=== PATIENT | female | born 1935 | race Caucasian/White ===

== ENCOUNTER → 2017-07-03 12:36 | Outpatient (CLI) | payer MEDICARE, BC, SELFPAY ==
--- NOTE | 2017-07-03 12:43 | NVE_ITS ---
Venous Exam Indications: 729.5 Pain in limb. IMPRESSIONS 1. There is no evidence of significant Reflux. 2. No evidence of deep or superficial vein thrombosis involving the left lower extremity Left lower extremity venous duplex evaluation. Doppler flow study including spectral analysis, color and link scale imaging. Location: Vascular laboratory. Patient status: Outpatient. CRITICAL FINDINGS - Reported to: ALEYDA - Read back and verified. - 07/03/17 - 1305 - NONE Tables: Venous flow and imaging: + +-------+ + Location Overall Flow properties + +-------+ + Left common femoral Patent Normal phasicity; spontaneous; normal augmentation; compressible + +-------+ + Left saphenofemoral junction Patent Compressible + +-------+ + Left profunda femoral Patent Compressible + +-------+ + Left femoral Patent Normal phasicity; spontaneous; normal augmentation; compressible + +-------+ + Left greater saphenous Patent Normal phasicity; spontaneous; normal augmentation; compressible + +-------+ + Left popliteal Patent Normal phasicity; spontaneous; normal augmentation; compressible + +-------+ + Left posterior tibial Patent Compressible + +-------+ + Left peroneal Patent Compressible + +-------+ + Left gastrocnemius Patent Compressible + +-------+ + Left soleal Patent Compressible + +-------+ + (Report amended ) Electronically signed by: Beau Murdock [id number]
== END ==
PROVIDERS: PCP Family Medicine; Visit Provider Family Medicine
DX: M79.605 Pain in left leg (principal); M79.89 Other specified soft tissue disorders
CPT/HCPCS: 93971

== ENCOUNTER → 2018-01-24 11:15 | Outpatient (CLI) | payer MEDICARE, BC, SELFPAY ==
--- NOTE | 2018-01-24 11:21 | XR_ITS ---
XR chest 2V HISTORY: ITS.REASON: RML PNEUMONIA ORDERING PHYSICIAN: Haylie Houser PATIENT AGE: 82 years COMPARISON: None FINDINGS: There is cardiomegaly with mild pulmonary venous congestion. There are no old exams available for comparison. Adwoa are prominent. There is a large hiatal hernia with an air-fluid level in the hernia there is mild kyphosis of the lower thoracic spine. IMPRESSION: Large hiatal hernia with cardiomegaly and mild CHF
== END ==
PROVIDERS: PCP Nurse Practitioner Family; Visit Provider Nurse Practitioner Family
DX: J18.1 Lobar pneumonia, unspecified organism (principal)
CPT/HCPCS: 71046

== ENCOUNTER → 2018-03-05 11:26 | Outpatient (CLI) | payer MEDICARE, BC, SELFPAY ==
--- NOTE | 2018-03-05 11:31 | XR_ITS ---
XR chest 2V HISTORY: Chest pain, pneumonia ITS.REASON: PLEURISY,PNEUMONIA RT LOWER LOBE ORDERING PHYSICIAN: Haylie Houser PATIENT AGE: 82 years COMPARISON: 01/24/2018 FINDINGS: Cardiomegaly without failure. Mitral valve calcification. There is a moderate sized hiatal hernia. There is kyphosis of the thoracic spine. Patchy density is present in the right lung base not readily apparent on the previous study in system with an area of atelectasis or infiltrate. IMPRESSION: Somewhat limited exam with severe kyphosis with patchy infiltrate or atelectasis in the right lung base. No change cardiomegaly with moderate-sized hiatal hernia.
== END ==
PROVIDERS: PCP Nurse Practitioner Family; Visit Provider Nurse Practitioner Family
DX: R09.1 Pleurisy (principal); J18.1 Lobar pneumonia, unspecified organism
CPT/HCPCS: 71046

== ENCOUNTER → 2018-03-08 13:41 | Outpatient (CLI) | payer MEDICARE, BC, SELFPAY ==
--- NOTE | 2018-03-08 13:44 | MM_ITS ---
MM Dig mamm BI DX w/CAD INDICATION: Right breast pain ORDERING PHYSICIAN: Haylie Houser PATIENT AGE: 82 years COMPARISON: 08/24/2015, 08/14/2011, 06/14/2010 TECHNIQUE: Standard images performed along with spot compression views FINDINGS: Mostly fatty replaced fibroglandular tissue. Bilateral benign-appearing calcifications. No malignant appearing mass or malignant appearing microcalcifications. There is some mild motion artifact on the right MLO reduced with spot compression view IMPRESSION: No evidence of malignancy with no significant change BI-RADS Category: 2 Benign Finding(s) RECOMMENDED FOLLOW-UP: 1YR - 1 YEAR FOLLOW-UP (A letter has been sent to the patient regarding results of the study.)
== END ==
PROVIDERS: PCP Nurse Practitioner Family; Visit Provider Nurse Practitioner Family
DX: R92.8 Other abnormal and inconclusive findings on diagnostic imaging of breast (principal); N64.4 Mastodynia
CPT/HCPCS: 77066

== ENCOUNTER → 2018-07-20 16:22 | Outpatient (CLI) | payer MEDICARE, BC, SELFPAY ==
[2018-07-20 17:33] LABS: Anion Gap 10.1 mEq/L (5-15); Blood Urea Nitrogen 14 mg/dL (7-18); Calcium 8.7 mg/dL (8.5-10.1); Carbon Dioxide 35 mmol/L (21.0-32.0); Chloride 94 mmol/L (98-107); Creatinine,Serum 1.07 mg/dL (0.55-1.02); Estimated Glomerular Filt Rate 49 ml/min (>60); GFR (African American) 60 ML/MIN (>60); Glucose 98 mg/dL (74-106); INR 3.77 (0.9-1.1); Potassium 3.1 mmoL/L (3.5-5.1); Prothrombin Time 37.4 seconds (9.4-11.8); Sodium 136 mmol/L (136-145)
== END ==
PROVIDERS: PCP Family Medicine; Referring Provider Nurse Practitioner Family; Visit Provider Family Medicine
DX: R71.8 Other abnormality of red blood cells (principal); Z51.81 Encounter for therapeutic drug level monitoring
CPT/HCPCS: 80048; 85610

== ENCOUNTER → 2018-10-30 12:46 | Outpatient (CLI) | payer MEDICARE, BC, SELFPAY ==
[2018-10-30 14:17] LABS: Anion Gap 9.6 mEq/L (5-15); Blood Urea Nitrogen 27 mg/dL (7-18); Calcium 9.2 mg/dL (8.5-10.1); Carbon Dioxide 33 mmol/L (21.0-32.0); Chloride 103 mmol/L (98-107); Creatinine,Serum 1.64 mg/dL (0.55-1.02); Estimated Glomerular Filt Rate 30 ml/min (>60); GFR (African American) 36 ML/MIN (>60); Glucose 113 mg/dL (74-106); Potassium 4.6 mmoL/L (3.5-5.1); Sodium 141 mmol/L (136-145)
== END ==
PROVIDERS: Visit Provider Internal Medicine Cardiovascular Disease
DX: I10 Essential (primary) hypertension (principal)
CPT/HCPCS: 36415; 80048; 83735

== ENCOUNTER → 2018-11-08 09:43 | Outpatient (CLI) | payer MEDICARE, BC, SELFPAY ==
[2018-11-08 11:01] LABS: Anion Gap 11.1 mEq/L (5-15); Blood Urea Nitrogen 36 mg/dL (7-18); Calcium 9.6 mg/dL (8.5-10.1); Carbon Dioxide 38 mmol/L (21.0-32.0); Chloride 93 mmol/L (98-107); Creatinine,Serum 1.67 mg/dL (0.55-1.02); Estimated Glomerular Filt Rate 29 ml/min (>60); GFR (African American) 36 ML/MIN (>60); Glucose 84 mg/dL (74-106); Magnesium 2.2 mg/dL (1.4-2.2); Potassium 3.1 mmoL/L (3.5-5.1); Sodium 139 mmol/L (136-145)
[2018-11-08 11:35] LABS: INR 1.61 (0.9-1.1); Prothrombin Time 16.4 seconds (9.4-11.8)
== END ==
PROVIDERS: Visit Provider Nurse Practitioner Family
DX: Z51.81 Encounter for therapeutic drug level monitoring (principal); Z79.01 Long term (current) use of anticoagulants
CPT/HCPCS: 36415; 80048; 83735; 85610

== ENCOUNTER → 2018-11-15 10:22 | Outpatient (CLI) | payer MEDICARE, BC, SELFPAY ==
[2018-11-15 10:59] LABS: INR 2.88 (0.9-1.1); Prothrombin Time 28.5 seconds (9.4-11.8)
[2018-11-15 13:19] LABS: Anion Gap 7.4 mEq/L (5-15); Blood Urea Nitrogen 31 mg/dL (7-18); Calcium 9.8 mg/dL (8.5-10.1); Carbon Dioxide 39 mmol/L (21.0-32.0); Chloride 95 mmol/L (98-107); Creatinine,Serum 1.77 mg/dL (0.55-1.02); Estimated Glomerular Filt Rate 27 ml/min (>60); GFR (African American) 33 ML/MIN (>60); Glucose 85 mg/dL (74-106); Potassium 3.4 mmoL/L (3.5-5.1); Sodium 138 mmol/L (136-145)
== END ==
PROVIDERS: Visit Provider Family Medicine
DX: Z51.81 Encounter for therapeutic drug level monitoring (principal); Z79.01 Long term (current) use of anticoagulants; E87.6 Hypokalemia
CPT/HCPCS: 36415; 80048; 85610

== ENCOUNTER 2018-11-17 23:46 | Observation (INO) ==
[2018-11-18 00:52] LABS: Microscopic, Urine URINE MICROSCOPIC (MICROSCOPIC)
[2018-11-18 00:56] LABS: Appearance,Urine CLOUDY (Clear); Bilirubin,Urine Negative (Negative); Blood, Urine 1+ (Negative); Color,Urine YELLOW (Yellow); Glucose,Urine (UA) Negative (Negative); Ketones,Urine Negative (Negative); Leukocyte Esterase,Urine 1+ (Negative); Protein,Urine TRACE (Negative); Urobilinogen,Urine 0.2 EU/dl (0.2)
[2018-11-18 01:01] LABS: Bacteria,Urine 2+ /lpf
[2018-11-18 01:23] LABS: Basophils # 0.1 K/mm3 (0-0.2); Basophils % 0.7 % (0.1-2.0); Eosinophils # 0.4 K/mm3 (0.0-0.4); Eosinophils % 4.5 % (0.1-12.0); Hematocrit 39.1 % (37.0-47.0); Hemoglobin 12.1 g/dL (12.2-16.2); Lymphocytes % 11.1 % (10-50); Mean Corpuscular HGB Conc 30.9 g/dL (31.8-35.4); Mean Corpuscular Volume 99.8 fl (81-99); Mean Platelet Volume 7.2 fl (7.4-10.4); Monocytes # 0.8 K/mm3 (0.1-1.0); Neutrophils # 6.6 K/mm3 (1.8-7.8); Neutrophils % 74.7 % (37.0-80.0); Platelet Count 210 K/mm3 (142-424); Red Blood Count 3.92 M/mm3 (4.20-5.40); Red Cell Distribution Width 16.1 % (11.5-17.5); White Blood Count 8.8 K/mm3 (4.8-10.8)
[2018-11-18 01:33] LABS: INR 3.14 (0.9-1.1); Prothrombin Time 30.9 seconds (9.4-11.8)
[2018-11-18 01:40] LABS: Albumin Level 3.4 gm/dL (3.4-5.0); Anion Gap 10.8 mEq/L (5-15); Bilirubin,Total 1.2 mg/dL (0.2-1.0); Calcium 9.4 mg/dL (8.5-10.1); Globulin 3.3 gm/dl (1.3-3.2); Total Protein,Serum 6.7 gm/dL (6.4-8.2)
--- NOTE | 2018-11-18 02:26 | Emergency Department Note ---
ED Disposition Clinical Impression: Renal insufficiency, Anticoagulated on Coumadin Cholelithiasis Qualifiers: Cholelithiasis location: gallbladder Cholecystitis presence: without cholecystitis Biliary obstruction: without biliary obstruction Qualified Code(s): K80.20 - Calculus of gallbladder without cholecystitis without obstruction Disposition: Admitted as Observation Condition on Discharge: Good Instructions: DI for Acute Abdomen Referrals: Ronnie Pizarro MD [Primary Care Provider] - - Critical Care Critical Care Time: No Attestation: On 11/17/18, the high probability of a clinically significant, sudden or life threatening deterioration of the following system(s) required my full and direct attention, intervention and personal management. The time I documented below is in addition to time spent performing reported procedures but includes the following listed in this critical care notation. Medical Decision Making - Medical Records Medical records reviewed: Yes: I reviewed the patient's medical records. - Willam Inquiry Pt receiving controlled substance: No Vital Signs: 11/18/18 00:39 11/18/18 00:51 11/18/18 02:12 Temperature 98.1 F 98.1 F Temperature Source Oral Oral Pulse Rate [Right Radial] 58 L 50 L 44 L Respiratory Rate 18 18 18 Blood Pressure [Right Arm] 131/62 131/62 144/59 H Blood Pressure Mean [Right Arm] 85 85 87 Blood Pressure Source [Right Arm] Automatic Cuff Automatic Cuff Blood Pressure Position [Right Arm] Supine Sitting 02 Sat by Pulse Oximetry 94 L 96 Oxygen Delivery Method Room Air Room Air - Lab Data Lab results reviewed: Yes: I reviewed the patient's lab results. Lab Results 11/18/18 00:45: Urine Color Yellow, Urine Appearance Cloudy, Urine pH 7.0, Ur Specific [place] 1.010, Urine Protein Trace, Urine Glucose (UA) Negative, Urine Ketones Negative, Urine Blood 1+, Urine Nitrate Positive, Urine Bilirubin Negative, Urine Urobilinogen 0.2, Ur Leukocyte Esterase 1+ A, Urine RBC 10-20, Urine WBC 10-20, Ur Squamous Epith Cells 3-5, Urine Bacteria 2+ 11/18/18 01:06: WBC 8.8, RBC 3.92 L, Hgb 12.1 L, Hct 39.1, MCV 99.8 H, MCH 30.8, MCHC 30.9 L, RDW 16.1, Plt Count 210, MPV 7.2 L, Neut % (Auto) 74.7, Lymph % (Auto) 11.1, [facility] % (Auto) 9.0, Eos % (Auto) 4.5, Baso % (Auto) 0.7, Neut # (Auto) 6.6, Lymph # (Auto) 1.0, [facility] # (Auto) 0.8, Eos # (Auto) 0.4, Baso # (Auto) 0.1 11/18/18 01:06: Sodium 134 L, Potassium 4.8 D, Chloride 95 L, Carbon Dioxide 33 H, Anion Gap 10.8, BUN 37 H, Creatinine 2.04 H, Estimated Creat Clear 30, Estimated GFR 23 L, Est GFR ( Amer) 28 L, Glucose 96, Calcium 9.4, Total Bilirubin 1.2 H, AST 54 H, ALT 35, Alkaline Phosphatase 114, Troponin I 0.08 H, C-Reactive Protein 1.0 H, Total Protein 6.7, Albumin 3.4, Globulin 3.3 H, Albumin/Globulin Ratio 1.0 L, Amylase 31, Lipase 116 11/18/18 01:06: ESR 13 11/18/18 01:06: Lactate 1.5 11/18/18 01:06: PT 30.9 H, INR 3.14 H Result diagrams: 11/18/18 01:06 11/18/18 01:06 Orders (Tests/Meds): ED MEDICATIONS Generic Name Dose Route Start Last Admin Trade Name Freq PRN Reason Stop Dose Admin Sodium Chloride 1,000 mls @ 999 mls/hr 11/18/18 01:00 11/18/18 01:20 Sod Chlor 0.9% 1000ml Bag IV 11/18/18 02:00 999 mls/hr .Q1H1M LORET[place] Administration Discontinued Medications Generic Name Dose Route Start Last Admin Trade Name Freq PRN Reason Stop Dose Admin Ketorolac Tromethamine 30 mg 11/18/18 00:46 11/18/18 01:20 Toradol 30mg/Ml Vial IV 11/18/18 00:47 30 mg ONCE ONE Administration Morphine Sulfate 4 mg 11/18/18 02:39 11/18/18 02:44 Morphine 4mg/Ml Syringe IV 11/18/18 02:40 4 mg ONCE ONE Administration Ondansetron HCl 4 mg 11/18/18 00:46 11/18/18 01:20 Zofran 4mg/2ml Vial IV 11/18/18 00:47 4 mg ONCE ONE Administration Ondansetron HCl 4 mg 11/18/18 02:39 11/18/18 02:44 Zofran 4mg/2ml Vial IV 11/18/18 02:40 4 mg ONCE ONE Administration ORDERS Category Date Time Status CT abdomen pelvis wo con Stat Cat Scan 11/18/18 00:46 Taken XR chest portable Stat Exams 11/18/18 00:45 Taken Blood Culture Stat Micro 11/18/18 01:06 Received Urine Culture Stat Micro 11/18/18 00:45 Received - Radiology Data #1 Image(s): Chest Image Reviewed: Yes I reviewed the patient's radiology image Preliminary Findings: Abnormal (nonspecific) - CT Data CT Scan: Abdomen, Pelvis Time Received: 04:[address] Reviewed: Yes: I have viewed the radiologist's interpretation Preliminary Findings: Abnormal (possible gb dis) - ECG Data Tracing #1 Arrhythmias present: accelerated junctional rhythm Ischemic changes: non-specific ST-T wave changes Nausea/Vomiting/Diarrhea HPI - General Chief complaint: Abdominal Pain Stated complaint: nausea,stomach aches Time Seen by Provider: 11/18/18 00:50 Mode of Arrival: Wheelchair Source of Information: Patient, Relative, Medical Record Limitations: No Limitations Description of Symptoms (Recalled from ER Triage Doc. by RN): pt states that she seen dr meeks earlier this week for nausea/vomiting/diarrhea. pt states that he told her it was from eating buffet. pt states that the nausea has worsened despite home zofran prescribed and she is now having abdominal pain, swelling and tightness. - History of Present Illness HPI Narrative: progressive abd pain this week with vomiting - dec po intake - she had been seen by dr pizarro this week - nonspecific diarrhea - MD complaint: nausea, vomiting, abdominal pain Onset (ago): day(s) Associated Abdominal Pain: Yes Location of pain: RUQ Severity: moderate Consistency: intermittent Associated symptoms: denies other symptoms - Related Data Home Medications Medication Instructions Recorded Confirmed Aspirin [Aspir 81] 81 mg PO DAILY 06/17/18 11/18/18 Fluoxetine HCl 20 mg PO DAILY 06/17/18 11/18/18 Levothyroxine Sodium 100 mcg PO DAILY 06/17/18 11/18/18 [Levothyroxine 100mcg (0.1MG) Tab] Rosuvastatin Calcium 10 mg PO HS 06/17/18 11/18/18 Torsemide 20 mg PO BID 06/17/18 11/18/18 Amiodarone HCl [Amiodarone 100mg 200 mg PO DAILY 08/22/18 11/18/18 Tab] Ferrous Sulfate [Iron] 325 mg PO BID 08/22/18 11/18/18 Nebivolol HCl [Bystolic] 2.5 mg PO DAILYP PRN 08/22/18 11/18/18 Potassium Chloride [Klor-Con] 60 meq PO TID 08/22/18 11/18/18 Warfarin Sodium 3.5 mg PO DAILY 08/22/18 11/18/18 Acetaminophen [Tylenol 325mg 650 mg PO Q6HP PRN 11/18/18 11/18/18 Tablet] Tramadol HCl/Acetaminophen 1 tab PO DAILY 11/18/18 11/18/18 [Ultracet 37.5/325mg tablet] metOLazone [metOLazone 2.5mg 2.5 mg PO DIRECTED 11/18/18 11/18/18 Tablet] Allergies Allergy/AdvReac Type Severity Reaction Status Date / Time No Known Allergies Allergy Verified 11/18/18 00:45 [facility] History - Hepatitis A Screen Drug use history?: No High risk sexual behaviors?: No History of sexually transmitted infection?: No Currently employed?: No Childcare worker?: No Do you have indoor plumbing?: Yes Do you have electricity?: Yes Attestation statement:: This patient has been screened for Hepatitis A risk factors. I have reviewed the patient's past medical history: Yes Medical History: Denies:: Cancer, Diabetes Mellitus Type 1, Diabetes Mellitus Type 2, MRSA Amputation: No - Social History Smoking Status: Never smoker Alcohol Intake: never Occupational Status: retired, disabled Housing: [facility] ROS Obtained: Yes All systems reviewed & no additional complaints - Constitutional Constitutional: Denies fever(s) - Eyes Eyes: Denies change in vision - ENT Ears, Nose, Mouth, and Throat: Denies sore throat - Cardiovascular Cardiovascular: Denies chest pain - Respiratory Respiratory: No cough - Gastrointestinal Gastrointestingal: Reports: as per HPI, abdominal pain, nausea, vomiting - Genitourinary Female Genitourinary: Denies hematuria - Musculoskeletal Musculoskeletal: Denies joint pain, Denies joint swelling - Integumentary/Breasts Skin/Breast: Denies rash - Neurologic Neurologic: Denies seizure-like activity Physical Exam - General General appearance: alert, obese - Head Head exam: normocephalic - Eye Eye exam: Present: PERRL, EOMI. Absent: scleral icterus - ENT ENT exam: Present: mucous membranes dry - Neck Neck exam: Present: trachea midline - Respiratory Respiratory exam: Present: other (dec bs bilat ). Absent: respiratory distress - Cardiovascular Cardiovascular exam: Present: regular rate, systolic murmur - Abdominal Exam Abdominal exam: Present: soft, tenderness, Alcantara's sign Abdominal tenderness: Present: RUQ, moderate - Extremities Exam Extremities exam: Present: pedal edema - Neurological Exam Neurological exam: Present: alert, CN II-XII intact - Psychiatric Psychiatric exam: Present: normal affect - Skin Skin exam: Absent: rash
--- NOTE | 2018-11-18 07:36 | History & Physical Report ---
*Admission Date: 11/18/18 *Chief complaint: Abdominal pain *History of present illness: 83-year-old female presented to the ER with 1 week of intermittent episodes of abdominal pain. Pain began last Sunday after eating at a local restaurant. She had nausea, mild abdominal pain and loose stools. She was seen in my office on Sunday with persistent symptoms. She was felt to possibly have mild gastroenteritis and was advised to follow a liquid diet. Patient tells me the rest of the week she continued to have loose stools until late in the week at which point she went a few days without a bowel movement until she took some MiraLAX. She continues to have abdominal pain and nausea. She presented to the emergency department overnight and work-up revealed acute gallstone on CT scan. Patient has been admitted for serial abdominal examinations and gallbladder ultrasound this morning [facility] History I have reviewed the patient's past medical history: Yes Medical History: Reports:: Congestive Heart Failure, Hyperlipidemia, Hypertension, Valvular Heart Disease Denies:: Cancer, Diabetes Mellitus Type 1, Diabetes Mellitus Type 2, MRSA *Have you ever received a pneumonia vaccine?: Yes *Have you received a flu vaccine this season?: Yes Other Medical History: Reports: Thyroid Disease Other Surgeries: Yes: Cardiac Surgery, Tubal Ligation Amputation: No Fractures: No - *Social History Educational Level: Attended College Smoking Status: Never smoker Alcohol Intake: never *Occupational Status:: retired, disabled Housing: house Household Members: spouse *Travel in the last 8 weeks: None - Psychiatric History Expresses thoughts of harming self/others: None Suicide Plan Description: No Plan Family Hx:: Cancer, Heart Attack Review of Systems - Review of Systems Review of systems:: pertinent systems reviewed and negative unless documented below - Constitutional Reports anorexia - *Cardiovascular Denies chest pain, Denies chest pain at rest - *Gastrointestinal Reports abdominal pain, Reports bloating, Reports change in bowel habits - *Musculoskeletal Reports abnormal walking, Reports joint pain, Reports decreased muscle mass - *Neurologic Denies seizure-like activity Meds Home Medications Medication Instructions Recorded Confirmed Type Aspirin [Aspir 81] 81 mg PO DAILY 06/17/18 11/18/18 History Fluoxetine HCl 20 mg PO DAILY 06/17/18 11/18/18 History Levothyroxine Sodium 100 mcg PO DAILY 06/17/18 11/18/18 History [Levothyroxine 100mcg (0.1MG) Tab] Rosuvastatin Calcium 10 mg PO HS 06/17/18 11/18/18 History Torsemide 20 mg PO BID 06/17/18 11/18/18 History Amiodarone HCl [Amiodarone 100mg 200 mg PO DAILY 08/22/18 11/18/18 History Tab] Ferrous Sulfate [Iron] 325 mg PO BID 08/22/18 11/18/18 History Nebivolol HCl [Bystolic] 2.5 mg PO DAILYP PRN 08/22/18 11/18/18 History Potassium Chloride [Klor-Con] 60 meq PO TID 08/22/18 11/18/18 History Warfarin Sodium 3.5 mg PO DAILY 08/22/18 11/18/18 History Acetaminophen [Tylenol 325mg 650 mg PO Q6HP PRN 11/18/18 11/18/18 History Tablet] Tramadol HCl/Acetaminophen 1 tab PO DAILY 11/18/18 11/18/18 History [Ultracet 37.5/325mg tablet] metOLazone [metOLazone 2.5mg 2.5 mg PO DIRECTED 11/18/18 11/18/18 History Tablet] Allergies Allergy/AdvReac Type Severity Reaction Status Date / Time No Known Allergies Allergy Verified 11/18/18 00:45 Exam Vital signs and Labs for Last 24 Hours: Temp Pulse Resp BP Pulse Ox 98.1 F 50 L 18 140/63 95 11/18/18 04:57 11/18/18 05:22 11/18/18 04:57 11/18/18 04:57 11/18/18 04:51 Laboratory Results - last 24 hr 11/18/18 00:45: Urine Color Yellow, Urine Appearance Cloudy, Urine pH 7.0, Ur Specific [place] 1.010, Urine Protein Trace, Urine Glucose (UA) Negative, Urine Ketones Negative, Urine Blood 1+, Urine Nitrate Positive, Urine Bilirubin Negative, Urine Urobilinogen 0.2, Ur Leukocyte Esterase 1+ A, Urine RBC 10-20, Urine WBC 10-20, Ur Squamous Epith Cells 3-5, Urine Bacteria 2+ 11/18/18 01:06: WBC 8.8, RBC 3.92 L, Hgb 12.1 L, Hct 39.1, MCV 99.8 H, MCH 30.8, MCHC 30.9 L, RDW 16.1, Plt Count 210, MPV 7.2 L, Neut % (Auto) 74.7, Lymph % (Auto) 11.1, [place] % (Auto) 9.0, Eos % (Auto) 4.5, Baso % (Auto) 0.7, Neut # (Auto) 6.6, Lymph # (Auto) 1.0, [place] # (Auto) 0.8, Eos # (Auto) 0.4, Baso # (Auto) 0.1 11/18/18 01:06: Sodium 134 L, Potassium 4.8 D, Chloride 95 L, Carbon Dioxide 33 H, Anion Gap 10.8, BUN 37 H, Creatinine 2.04 H, Estimated Creat Clear 30, Estimated GFR 23 L, Est GFR ( Amer) 28 L, Glucose 96, Calcium 9.4, Total Bilirubin 1.2 H, AST 54 H, ALT 35, Alkaline Phosphatase 114, Troponin I 0.08 H, C-Reactive Protein 1.0 H, Total Protein 6.7, Albumin 3.4, Globulin 3.3 H, Albumin/Globulin Ratio 1.0 L, Amylase 31, Lipase 116 11/18/18 01:06: ESR 13 11/18/18 01:06: Lactate 1.5 11/18/18 01:06: PT 30.9 H, INR 3.14 H I & O for Last 24 hours: Intake & Output 11/15/18 11/16/18 11/17/18 11/18/18 11:59 11:59 11:59 11:59 Intake Total Balance Weight 205 lb 3 oz - Constitutional no acute distress - *Routine HEENT Exam Eye: Present: EOMI ENT: Present: mucous membranes moist - *Routine Neck Exam Present: supple, full ROM, JVD - *Routine Respiratory Exam Present: CTA bilaterally - *Routine Cardiovascular Exam Present: RRR, murmur - *Routine Abdominal Exam Present: soft, normoactive bowel sounds. Absent: tenderness, distended, rebound Assessment and Plan (1) Abdominal pain Current visit: Yes Status: Acute Category: Medical Code(s): R10.9 - Unsp ecified abdominal pain (2) Cholelithiasis Current visit: Yes Status: Acute Qualifiers: Cholelithiasis location: gallbladder Cholecystitis presence: without cholecystitis Biliary obstruction: without biliary obstruction Qualified C ode(s): K80.20 - Calculus of gallbladder without cholecystitis without obstruction Category: Medical Code(s): K80.20 - Calculus of gallbladder without cholecystitis without obstruction - Assessment and plan all Dx Assessment and Plan for all problems:: 1. Gallbladder ultrasound this morning to look for evidence of acute cholecystitis 2. Start IV Protonix twice daily 3. Home medications 4. After her ultrasound she will be started on clear liquids
--- NOTE | 2018-11-18 10:29 | Pharmacy Consult Notes ---
[facility] Pharmacy VTE Monitoring - Patient Demographics Admission date: 11/18/18 Report Date: 11/18/18 Time: 10:29 Allergies/Adverse Reactions: Patient Allergies No Known Allergies Allergy (Verified 11/18/18 00:45) Height: 1.68 m Weight: 93.071 kg Patient Problems: Current Active Problems (This Medical Record has been edited. Action required.) Renal insufficiency (Acute) Anticoagulated on Coumadin (Acute) Cholelithiasis (Acute) Abdominal pain (Acute) - VTE Risk Labs: VTE Related Lab Results Hgb 12.1 g/dL (12.2-16.2) L 11/18/18 01:06 Hct 39.1 % (37.0-47.0) 11/18/18 01:06 Plt Count 210 K/mm3 (142-424) 11/18/18 01:06 PT 30.9 seconds (9.4-11.8) H 11/18/18 01:06 INR 3.14 (0.9-1.1) H 11/18/18 01:06 BUN 37 mg/dL (7-18) H 11/18/18 01:06 Creatinine 2.04 mg/dL (0.55-1.02) H 11/18/18 01:06 Estimated Creat Clear 30 mL/min (50-200) 11/18/18 01:06 Was VTE Risk Assessment Performed: Yes VTE Score: 5 VTE Risk Level: Low Risk - Prophylaxis VTE Prophylaxis Ordered?: Yes Types of VTE Prophylaxis: Pharmacological Pharmacologic Type: Warfarin - VTE Diagnosis Confirmed Treatment or plan recommended: Continue Current Treatment
--- NOTE | 2018-11-18 17:36 | Electrocardiograph Report ---
APPROVED REPORT Exam: Resting ECG HR:45 bpm ECG Measurements Heart Rate 45 AXES QRSd 94 QRS 88 QT 556 T34 QTc 480 <Conclusion> Junctional rhythm Nonspecific ST-T wave changes, questionable electrolyte abnormality Abnormal ECG Electronically signed by : Ronnie Torres, 11/18/2018 17:36:25
[2018-11-19 06:48] LABS: Anion Gap 10.6 mEq/L (5-15); Calcium 8.8 mg/dL (8.5-10.1)
[2018-11-19 07:16] LABS: Basophils # 0.1 K/mm3 (0-0.2); Eosinophils # 0.7 K/mm3 (0.0-0.4); Eosinophils % 10.7 % (0.1-12.0); Hematocrit 35.9 % (37.0-47.0); Lymphocytes # 0.7 K/mm3 (0.7-4.5); Lymphocytes % 10.6 % (10-50); Mean Corpuscular HGB Conc 30.7 g/dL (31.8-35.4); Mean Corpuscular Volume 99.8 fl (81-99); Mean Platelet Volume 7.1 fl (7.4-10.4); Monocytes # 0.6 K/mm3 (0.1-1.0); Monocytes % 8.9 % (1.7-9.3); Neutrophils # 4.4 K/mm3 (1.8-7.8); Neutrophils % 68.8 % (37.0-80.0); Platelet Count 167 K/mm3 (142-424); Red Blood Count 3.59 M/mm3 (4.20-5.40); Red Cell Distribution Width 15.9 % (11.5-17.5); White Blood Count 6.4 K/mm3 (4.8-10.8)
--- NOTE | 2018-11-19 07:20 | Progress Note ---
Internal Medicine - PN: Subj *Date: 11/19/18 *Time: 07:18 Interval history: Patient has no complaints this morning. She has not had any abdominal pain since yesterday morning. Her bowels have not moved. She clear liquids. Exam Vital signs and Labs for Last 24 Hours: Temp Pulse Resp BP Pulse Ox 98.0 F 60 22 130/72 91 L 11/19/18 04:00 11/19/18 04:00 11/19/18 04:00 11/19/18 04:00 11/19/18 04:00 Laboratory Results - last 24 hr 11/19/18 05:53: Sodium 138, Potassium 2.6 L* D, Chloride 97 L, Carbon Dioxide 33 H, Anion Gap 10.6, BUN 32 H, Creatinine 1.79 H, Estimated Creat Clear 36, Estimated GFR 27 L, Est GFR ( Amer) 33 L, Glucose 80, Calcium 8.8 I & O for Last 24 hours: Intake & Output 11/16/18 11/17/18 11/18/18 11/19/18 11:59 11:59 11:59 11:59 Intake Total 42 / 42 480 / 480 Balance 42 / 42 480 / 480 Weight 205 lb 3 oz 205 lb 2.947 oz Microbiology Reports for the Last 24 Hours: Microbiology 11/18/18 00:45 Urine,Clean Catch Urine Culture - Preliminary NO GROWTH AFTER 24 HOURS Narrative: She is in no distress. Lungs are clear. Heart has a regular rate and rhythm with systolic murmur. Abdomen is soft and nontender. Bowel sounds are present Assessment and Plan (1) Abdominal pain Current visit: Yes Status: Acute Category: Medical Code(s): R10.9 - Unspecified abdominal pain (2) Cholelithiasis Current visit: Yes Status: Acute Qualifiers: Cholelithiasis location: gallbladder Cholecystitis presence: without cholecystitis Biliary obstruction: without biliary obstruction Qualified Code(s): K80.20 - Calculus of gallbladder without cholecystitis without obstruction Category: Medical Code(s): K80.20 - Calculus of gallbladder without cholecystitis without obstruction - Assessment and plan all Dx Assessment and Plan for all problems:: 1. Advance diet to full liquids and likely low residue diet later in the day 2. Replace potassium orally 3. Gallbladder ultrasound showed mild thickening of the gallbladder wall but no evidence of acute cholecystitis, pericholecystic fluid, stones
[2018-11-19 07:56] LABS: INR 3.02 (0.9-1.1); Prothrombin Time 29.8 seconds (9.4-11.8)
--- NOTE | 2018-11-20 07:18 | Progress Note ---
Internal Medicine - PN: Subj *Date: 11/20/18 *Time: 07:16 Interval history: Patient reported some back pain yesterday evening treated with tramadol and then some abdominal pain described as crampy in nature. Patient feels the urge to have a bowel movement but has been unable. Exam Vital signs and Labs for Last 24 Hours: Temp Pulse Resp BP Pulse Ox 97.7 F 68 18 120/51 L 97 11/20/18 04:00 11/20/18 04:00 11/20/18 04:00 11/20/18 04:00 11/20/18 04:00 Laboratory Results - last 24 hr 11/19/18 05:53: WBC 6.4 D, RBC 3.59 L, Hgb 11.0 L, Hct 35.9 L, MCV 99.8 H, MCH 30.6, MCHC 30.7 L, RDW 15.9, Plt Count 167, MPV 7.1 L, Neut % (Auto) 68.8, Lymph % (Auto) 10.6, [place] % (Auto) 8.9, Eos % (Auto) 10.7, Baso % (Auto) 1.0, Neut # (Auto) 4.4, Lymph # (Auto) 0.7, [place] # (Auto) 0.6, Eos # (Auto) 0.7 H, Baso # (Auto) 0.1 11/19/18 05:53: PT 29.8 H, INR 3.02 H I & O for Last 24 hours: Intake & Output 11/17/18 11/18/18 11/19/18 11/20/18 11:59 11:59 11:59 11:59 Intake Total 960 / 960 970 / 970 Balance 960 / 960 970 / 970 Weight 205 lb 3 oz 205 lb 2.947 oz 205 lb 7.533 oz Microbiology Reports for the Last 24 Hours: Microbiology 11/18/18 01:06 Blood Blood Culture - Preliminary NO GROWTH AFTER 48 HOURS 11/18/18 01:06 Blood Blood Culture - Preliminary NO GROWTH AFTER 48 HOURS 11/18/18 00:45 Urine,Clean Catch Urine Culture - Preliminary Narrative: Patient is awake and alert. Lungs are clear. Heart is regular rate and rhythm. Abdomen is soft and distended with active bowel sounds Assessment and Plan (1) Abdominal pain Current visit: Yes Status: Acute Category: Medical Code(s): R10.9 - Unspecified abdominal pain (2) Cholelithiasis Current visit: Yes Status: Ruled-out Qualifiers: Cholelithiasis location: gallbladder Cholecystitis presence: without cholecystitis Biliary obstruction: without biliary obstruction Qualified Code(s): K80.20 - Calculus of gallbladder without cholecystitis without obstruction Category: Medical Code(s): K80.20 - Calculus of gallbladder without cholecystitis without obstruction (3) Constipation Current visit: Yes Status: Acute Category: Medical Code(s): K59.00 - Constipation, unspecified (4) UTI (urinary tract infection) Current visit: Yes Status: Suspected Category: Medical Code(s): N39.0 - Urinary tract infection, site not specified - Assessment and plan all Dx Assessment and Plan for all problems:: 1. We will give MiraLAX this morning and Dulcolax suppository as needed 2. May discharge later today 3. Await urine culture
--- NOTE | 2018-11-20 07:23 | Discharge Summary ---
General - General Admission date:: 11/18/18 HPI HPI: 83-year-old female presented to the ER with 1 week of intermittent episodes of abdominal pain. Pain began last Sunday after eating at a local restaurant. She had nausea, mild abdominal pain and loose stools. She was seen in my office on Sunday with persistent symptoms. She was felt to possibly have mild gastroenteritis and was advised to follow a liquid diet. Patient tells me the rest of the week she continued to have loose stools until late in the week at which point she went a few days without a bowel movement until she took some MiraLAX. She continues to have abdominal pain and nausea. She presented to the emergency department overnight and work-up revealed acute gallstone on CT scan. Patient has been admitted for serial abdominal examinations and gallbladder ultrasound this morning Hospital Course Hospital Course: Patient was admitted and started on low volume IV fluids. 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 Patient was started on a clear liquid diet which she tolerated. After 24 hours she was advanced to full liquids and then a bland/low residue diet which she tolerated. Patient did not have a bowel movement while hospitalized and began to complain of some abdominal discomfort towards the end of admission. Patient was given MiraLAX and as needed Dulcolax suppositories to try to relieve constipation. Urinalysis was abnormal on admission and patient was started on Rocephin IV. At the time of this dictation urine culture is not final. Patient will be continued on antibiotics until culture is available. On the patient was tolerating diet. She was discharged home. She will follow-up in the office in 2 days Objective Vital signs: Temp Pulse Resp BP Pulse Ox 97.7 F 68 18 120/51 L 97 11/20/18 04:00 11/20/18 04:00 11/20/18 04:00 11/20/18 04:00 11/20/18 04:00 Results Labs on day of discharge: Labs from last 24 hours 11/19/18 11/19/18 05:53 05:53 WBC 6.4 D RBC 3.59 L Hgb 11.0 L Hct 35.9 L MCV 99.8 H MCH 30.6 MCHC 30.7 L RDW 15.9 Plt Count 167 MPV 7.1 L Neut % (Auto) 68.8 Lymph % (Auto) 10.6 [place] % (Auto) 8.9 Eos % (Auto) 10.7 Baso % (Auto) 1.0 Neut # (Auto) 4.4 Lymph # (Auto) 0.7 [place] # (Auto) 0.6 Eos # (Auto) 0.7 H Baso # (Auto) 0.1 PT 29.8 H INR 3.02 H Preliminary micro results at discharge 11/18/18 01:06 Blood Culture - Preliminary Blood NO GROWTH AFTER 48 HOURS 11/18/18 01:06 Blood Culture - Preliminary Blood NO GROWTH AFTER 48 HOURS 11/18/18 00:45 Urine Culture - Preliminary Urine,Clean Catch DS: Diagnosis - Discharge Diagnosis (1) Abdominal pain Status: Acute (2) Cholelithiasis Status: Ruled-out (3) Constipation Status: Acute (4) UTI (urinary tract infection) Status: Suspected (5) Constipation by delayed colonic transit Status: Acute Discharge Plan - Patient Discharge Instructions ACTIVITY: Continue current activity DIET: continue same diet Patient Instructions: Gallstones, DI for Gallstones, Coumadin Vitamin K/ Diet, Coumadin Therapy Booklet - Follow up Plan Follow up with: Ronnie Powers MD [Primary Care Provider] - 2 days Disposition: Home, Self-Snf Medications: Home Medications Medication Instructions Recorded Confirmed Type Aspirin [Aspir 81] 81 mg PO DAILY 06/17/18 11/18/18 History Fluoxetine HCl 20 mg PO DAILY 06/17/18 11/18/18 History Levothyroxine Sodium 100 mcg PO DAILY 06/17/18 11/18/18 History [Levothyroxine 100mcg (0.1MG) Tab] Rosuvastatin Calcium 10 mg PO HS 06/17/18 11/18/18 History Torsemide 20 mg PO BID 06/17/18 11/18/18 History Amiodarone HCl [Amiodarone 100mg 200 mg PO DAILY 08/22/18 11/18/18 History Tab] Nebivolol HCl [Bystolic] 2.5 mg PO DAILYP PRN 08/22/18 11/18/18 History Potassium Chloride [Klor-Con] 60 meq PO TID 08/22/18 11/18/18 History Warfarin Sodium 3.5 mg PO DAILY 08/22/18 11/18/18 History Acetaminophen [Tylenol 325mg 650 mg PO Q6HP PRN 11/18/18 11/18/18 History Tablet] Ferrous Gluconate [Ferrous 324 mg PO DAILY 11/18/18 11/18/18 History Gluconate 324mg Tab] Ondansetron HCl [Ondansetron 4mg 4 mg PO Q8HP PRN 11/18/18 11/18/18 History Tablet] Tramadol HCl/Acetaminophen 1 tab PO Q6HP PRN 11/18/18 11/18/18 History [Ultracet 37.5/325mg tablet] metOLazone [metOLazone 2.5mg 2.5 mg PO QODHS 11/18/18 11/18/18 History Tablet] Polyethylene Glycol 3350 [Miralax 17 gm PO DAILY #30 powd.pack 11/20/18 Rx 17gm Packet] cephALEXin [Cephalexin 500mg Tab] 1,000 mg PO Q12H #20 tab 11/20/18 Rx Prescriptions/Medication Reconciliation: New cephALEXin [Cephalexin 500mg Tab] 1,000 mg PO Q12H #20 tab Polyethylene Glycol 3350 [Miralax 17gm Packet] 17 gm PO DAILY #30 powd.pack Continued Fluoxetine HCl 20 mg PO DAILY Rosuvastatin Calcium 10 mg PO HS Torsemide 20 mg PO BID Levothyroxine Sodium [Levothyroxine 100mcg (0.1MG) Tab] 100 mcg PO DAILY Aspirin [Aspir 81] 81 mg PO DAILY Warfarin Sodium 3.5 mg PO DAILY Amiodarone HCl [Amiodarone 100mg Tab] 200 mg PO DAILY Potassium Chloride [Klor-Con] 60 meq PO TID Tramadol HCl/Acetaminophen [Ultracet 37.5/325mg tablet] 1 tab PO Q6HP PRN PRN Reason: PAIN metOLazone [metOLazone 2.5mg Tablet] 2.5 mg PO QODHS Acetaminophen [Tylenol 325mg Tablet] 650 mg PO Q6HP PRN PRN Reason: As Needed For Fever Or Pain Ferrous Gluconate [Ferrous Gluconate 324mg Tab] 324 mg PO DAILY Ondansetron HCl [Ondansetron 4mg Tablet] 4 mg PO Q8HP PRN PRN Reason: Nausea And Vomiting Nebivolol HCl [Bystolic] 2.5 mg PO DAILYP PRN PRN Reason: see orders - Problem Reconciliation Problems Reviewed?: Yes
[2018-11-20 07:34] LABS: Calcium 8.7 mg/dL (8.5-10.1)
[2018-11-20 07:36] LABS: INR 3.83 (0.9-1.1); Prothrombin Time 37.4 seconds (9.4-11.8)
[2018-11-20 08:56] LABS: Basophils # 0.1 K/mm3 (0-0.2); Basophils % 0.6 % (0.1-2.0); Eosinophils # 0.7 K/mm3 (0.0-0.4); Eosinophils % 8.2 % (0.1-12.0); Hematocrit 38.1 % (37.0-47.0); Hemoglobin 11.7 g/dL (12.2-16.2); Lymphocytes # 0.7 K/mm3 (0.7-4.5); Lymphocytes % 8.3 % (10-50); Mean Corpuscular HGB Conc 30.6 g/dL (31.8-35.4); Mean Corpuscular Volume 100.7 fl (81-99); Monocytes # 0.9 K/mm3 (0.1-1.0); Monocytes % 10.2 % (1.7-9.3); Neutrophils # 6.1 K/mm3 (1.8-7.8); Neutrophils % 72.6 % (37.0-80.0); Platelet Count 186 K/mm3 (142-424); Red Blood Count 3.78 M/mm3 (4.20-5.40); Red Cell Distribution Width 15.9 % (11.5-17.5); White Blood Count 8.3 K/mm3 (4.8-10.8)
== END 2018-11-20 14:03 | disposition home or self-care (01) ==
LOC: ER 23:46 → 2ND 23:46
PROVIDERS: ADMIT Family Medicine; ATTEND Family Medicine
CPT/HCPCS: 36415; 71010; 71045; 74176; 76705; 80048; 80053; 81001; 82150; 83605; 83690; 84484; 85025; 85610; 85651; 86140; 87040; 87086; 87088; 87186; 93005; 94761; 96365; 96375; 96376; 99284; G0378; J2405

== ENCOUNTER → 2018-12-10 16:26 | Outpatient (CLI) | payer MEDICARE, BC, SELFPAY ==
[2018-12-10 16:53] LABS: INR 2.22 (0.9-1.1); Prothrombin Time 22.2 seconds (9.4-11.8)
[2018-12-10 18:37] LABS: Anion Gap 10.8 mEq/L (5-15); Blood Urea Nitrogen 31 mg/dL (7-18); Calcium 9.6 mg/dL (8.5-10.1); Carbon Dioxide 35 mmol/L (21.0-32.0); Chloride 94 mmol/L (98-107); Creatinine,Serum 1.76 mg/dL (0.55-1.02); Estimated Glomerular Filt Rate 28 ml/min (>60); GFR (African American) 33 ML/MIN (>60); Glucose 75 mg/dL (74-106); Potassium 4.8 mmoL/L (3.5-5.1); Sodium 135 mmol/L (136-145)
== END ==
PROVIDERS: Visit Provider Family Medicine
DX: Z51.81 Encounter for therapeutic drug level monitoring (principal); Z79.01 Long term (current) use of anticoagulants; E87.6 Hypokalemia
CPT/HCPCS: 36415; 80048; 85610

== ENCOUNTER → 2018-12-18 10:42 | Outpatient (CLI) | payer MEDICARE, BC, SELFPAY ==
[2018-12-18 14:23] LABS: Potassium 2.7 mmoL/L (3.5-5.1)
[2018-12-18 15:28] LABS: INR 1.69 (0.9-1.1); Prothrombin Time 17.1 seconds (9.4-11.8)
== END ==
PROVIDERS: PCP Family Medicine; Visit Provider Family Medicine
DX: R04.0 Epistaxis (principal); Z51.81 Encounter for therapeutic drug level monitoring; Z79.01 Long term (current) use of anticoagulants
CPT/HCPCS: 84132; 85610

== ENCOUNTER → 2018-12-19 13:23 | Outpatient (CLI) | payer MEDICARE, BC, SELFPAY ==
[2018-12-19 14:31] LABS: Basophils # 0.1 K/mm3 (0-0.2); Basophils % 0.9 % (0.1-2.0); Eosinophils # 0.6 K/mm3 (0.0-0.4); Hematocrit 37.9 % (37.0-47.0); Hemoglobin 11.9 g/dL (12.2-16.2); Lymphocytes # 0.6 K/mm3 (0.7-4.5); Lymphocytes % 7.7 % (10-50); Mean Corpuscular HGB Conc 31.3 g/dL (31.8-35.4); Mean Corpuscular Hemoglobin 30.9 pg (27.0-31.2); Mean Corpuscular Volume 98.4 fl (81-99); Mean Platelet Volume 7.7 fl (7.4-10.4); Monocytes # 0.6 K/mm3 (0.1-1.0); Neutrophils # 5.9 K/mm3 (1.8-7.8); Neutrophils % 75.4 % (37.0-80.0); Platelet Count 205 K/mm3 (142-424); Red Blood Count 3.85 M/mm3 (4.20-5.40); Red Cell Distribution Width 15.5 % (11.5-17.5); Reticulocyte % (Auto) 1.9 % (0.9-3.2); White Blood Count 7.8 K/mm3 (4.8-10.8)
== END ==
PROVIDERS: Visit Provider Otolaryngology
DX: R04.0 Epistaxis (principal); R09.02 Hypoxemia
CPT/HCPCS: 36415; 85025; 85044

== ENCOUNTER → 2018-12-24 10:02 | Outpatient (CLI) | payer MEDICARE, BC, SELFPAY ==
[2018-12-24 13:59] LABS: Potassium 3.4 mmoL/L (3.5-5.1)
[2018-12-24 14:19] LABS: INR 2.53 (0.9-1.1); Prothrombin Time 25.2 seconds (9.4-11.8)
== END ==
PROVIDERS: PCP Family Medicine; Visit Provider Family Medicine
DX: Z51.81 Encounter for therapeutic drug level monitoring (principal); Z79.01 Long term (current) use of anticoagulants
CPT/HCPCS: 84132; 85610

== ENCOUNTER → 2018-12-28 15:00 | Outpatient (CLI) | payer MEDICARE, BC, SELFPAY ==
[2018-12-30 13:24] LABS: Adenovirus F 40/41, stool Not Detected (NotDetected); Astrovirus Not Detected (NotDetected); Campylobacter Not Detected (NotDetected); Clostridium Difficile A/B, PCR Not Detected (NotDetected); Cryptosporidium Not Detected (NotDetected); Cyclospora Cayetanesis Not Detected (NotDetected); Entamoeba histolytica Not Detected (NotDetected); Enteroaggregative E coli Not Detected (NotDetected); Enteropathogenic E coli Not Detected (NotDetected); Enterotoxigenic E coli Not Detected (NotDetected); Giardia lamblia Not Detected (NotDetected); Norovirus Not Detected (NotDetected); Plesimonas Shigalloides, PCR Not Detected (NotDetected); Rotavirus A Not Detected (NotDetected); Salmonella, PCR Not Detected (NotDetected); Sapovirus Not Detected (NotDetected); Shiga-like toxin E coli Not Detected (NotDetected); Shigella Enterovasive E coli Not Detected (NotDetected); Vibrio Cholerae Not Detected (NotDetected); Vibrio, PCR Not Detected (NotDetected); Yersinia Entercolitica, PCR Not Detected (NotDetected)
== END ==
PROVIDERS: Visit Provider Family Medicine
DX: R19.7 Diarrhea, unspecified (principal)
CPT/HCPCS: 87506

== ENCOUNTER → 2019-01-01 10:31 | Outpatient (CLI) | payer MEDICARE, BC, SELFPAY ==
[2019-01-01 14:06] LABS: Potassium 3.9 mmoL/L (3.5-5.1)
[2019-01-01 14:50] LABS: INR 2.89 (0.9-1.1); Prothrombin Time 28.6 seconds (9.4-11.8)
== END ==
PROVIDERS: PCP Family Medicine; Visit Provider Family Medicine
DX: R79.1 Abnormal coagulation profile (principal)
CPT/HCPCS: 84132; 85610

== ENCOUNTER → 2019-01-08 10:10 | Outpatient (CLI) | payer MEDICARE, BC, SELFPAY ==
[2019-01-08 14:13] LABS: Potassium 3.3 mmoL/L (3.5-5.1)
[2019-01-08 14:29] LABS: INR 2.63 (0.9-1.1); Prothrombin Time 26.1 seconds (9.4-11.8)
== END ==
PROVIDERS: PCP Family Medicine; Visit Provider Family Medicine
DX: Z51.81 Encounter for therapeutic drug level monitoring (principal); Z79.01 Long term (current) use of anticoagulants
CPT/HCPCS: 84132; 85610

== ENCOUNTER → 2019-01-15 10:35 | Outpatient (CLI) | payer MEDICARE, BC, SELFPAY ==
[2019-01-15 14:46] LABS: Potassium 3.9 mmoL/L (3.5-5.1)
[2019-01-15 15:07] LABS: INR 3.52 (0.9-1.1); Prothrombin Time 34.5 seconds (9.4-11.8)
== END ==
PROVIDERS: PCP Family Medicine; Visit Provider Family Medicine
DX: R79.1 Abnormal coagulation profile (principal)
CPT/HCPCS: 84132; 85610

== ENCOUNTER → 2019-01-22 11:04 | Outpatient (CLI) | payer MEDICARE, BC, SELFPAY ==
[2019-01-22 14:31] LABS: Potassium 3.2 mmoL/L (3.5-5.1)
[2019-01-22 15:35] LABS: INR 2.66 (0.9-1.1); Prothrombin Time 26.4 seconds (9.4-11.8)
== END ==
PROVIDERS: PCP Family Medicine; Visit Provider Family Medicine
DX: R79.1 Abnormal coagulation profile (principal); Z51.81 Encounter for therapeutic drug level monitoring; Z79.01 Long term (current) use of anticoagulants
CPT/HCPCS: 84132; 85610

== ENCOUNTER → 2019-01-29 10:01 | Outpatient (CLI) | payer MEDICARE, BC, SELFPAY ==
[2019-01-29 13:57] LABS: Potassium 3.5 mmoL/L (3.5-5.1)
[2019-01-29 14:32] LABS: INR 3.62 (0.9-1.1); Prothrombin Time 35.4 seconds (9.4-11.8)
== END ==
PROVIDERS: PCP Family Medicine; Visit Provider Family Medicine
DX: Z79.01 Long term (current) use of anticoagulants (principal); R79.1 Abnormal coagulation profile
CPT/HCPCS: 84132; 85610

== ENCOUNTER → 2019-02-05 09:52 | Outpatient (CLI) | payer MEDICARE, BC, SELFPAY ==
[2019-02-05 13:44] LABS: Potassium 3.7 mmoL/L (3.5-5.1)
[2019-02-05 14:37] LABS: INR 3.15 (0.9-1.1)
== END ==
PROVIDERS: PCP Family Medicine; Visit Provider Family Medicine
DX: Z79.01 Long term (current) use of anticoagulants (principal); R71.8 Other abnormality of red blood cells
CPT/HCPCS: 84132; 85610

== ENCOUNTER → 2019-02-12 11:47 | Outpatient (CLI) | payer MEDICARE, BC, SELFPAY ==
[2019-02-12 14:46] LABS: Potassium 3.9 mmoL/L (3.5-5.1)
[2019-02-12 14:49] LABS: INR 2.47 (0.9-1.1); Prothrombin Time 24.6 seconds (9.4-11.8)
== END ==
PROVIDERS: PCP Family Medicine; Visit Provider Family Medicine
DX: R79.1 Abnormal coagulation profile (principal); Z51.81 Encounter for therapeutic drug level monitoring; Z79.01 Long term (current) use of anticoagulants
CPT/HCPCS: 84132; 85610

== ENCOUNTER → 2019-02-20 10:11 | Outpatient (CLI) | payer MEDICARE, BC, SELFPAY ==
[2019-02-20 14:06] LABS: Potassium 3.2 mmoL/L (3.5-5.1)
[2019-02-20 14:50] LABS: INR 1.88 (0.9-1.1)
== END ==
PROVIDERS: PCP Family Medicine; Visit Provider Family Medicine
DX: E87.6 Hypokalemia (principal); Z79.01 Long term (current) use of anticoagulants; R79.1 Abnormal coagulation profile
CPT/HCPCS: 84132; 85610

== ENCOUNTER → 2019-02-28 15:41 | Outpatient (CLI) | payer MEDICARE, BC, SELFPAY ==
[2019-02-28 16:55] LABS: Potassium 4.3 mmoL/L (3.5-5.1)
== END ==
PROVIDERS: Visit Provider Family Medicine
DX: N18.3 Chronic kidney disease, stage 3 (moderate) (principal); E87.6 Hypokalemia
CPT/HCPCS: 36415; 84132

== ENCOUNTER → 2019-03-05 12:52 | Outpatient (CLI) | payer MEDICARE, BC, SELFPAY ==
[2019-03-05 15:59] LABS: Potassium 3.2 mmoL/L (3.5-5.1)
== END ==
PROVIDERS: PCP Family Medicine; Visit Provider Family Medicine
DX: Z51.81 Encounter for therapeutic drug level monitoring (principal); Z79.01 Long term (current) use of anticoagulants; I48.91 Unspecified atrial fibrillation; N18.3 Chronic kidney disease, stage 3 (moderate)
CPT/HCPCS: 36415; 84132

== ENCOUNTER → 2019-03-20 12:57 | Outpatient (CLI) | payer MEDICARE, BC, SELFPAY ==
[2019-03-20 14:24] LABS: INR 1.42 (0.9-1.1); Prothrombin Time 14.5 seconds (9.4-11.8)
[2019-03-20 14:37] LABS: Potassium 3.8 mmoL/L (3.5-5.1)
== END ==
PROVIDERS: PCP Family Medicine; Visit Provider Family Medicine
DX: Z51.81 Encounter for therapeutic drug level monitoring (principal); Z79.01 Long term (current) use of anticoagulants; R79.1 Abnormal coagulation profile
CPT/HCPCS: 36415; 84132; 85610

== ENCOUNTER 2019-03-20 22:51 | Observation (INO) ==
[2019-03-20 23:11] LABS: ABG Base Excess 12.4 mmol/L (-2.4-2.3); ABG HCO3 35.4 mmhg (22.0-26.0); ABG Oxygen Saturation 97 % (90-100); ABG PCO2 44.8 mmhg (35.0-45.0); ABG PH 7.52 mmol/L (7.35-7.45); ABG PO2 93.5 mmhg (80-100); ABG TCO2 36.7 mmhg (23-27)
[2019-03-20 23:13] LABS: Allen's Test Acceptable; Oxygen 4.5 lpm 38% nc %
[2019-03-20 23:15] LABS: Basophils # 0.1 K/mm3 (0-0.2); Eosinophils # 0.4 K/mm3 (0.0-0.4); Eosinophils % 4.2 % (0.1-12.0); Hematocrit 38.5 % (37.0-47.0); Hemoglobin 11.8 g/dL (12.2-16.2); Lymphocytes # 0.8 K/mm3 (0.7-4.5); Lymphocytes % 9.1 % (10-50); Mean Corpuscular HGB Conc 30.6 g/dL (31.8-35.4); Mean Corpuscular Volume 99.5 fl (81-99); Mean Platelet Volume 8.1 fl (7.4-10.4); Monocytes # 0.8 K/mm3 (0.1-1.0); Monocytes % 8.2 % (1.7-9.3); Neutrophils # 7.1 K/mm3 (1.8-7.8); Neutrophils % 77.6 % (37.0-80.0); Platelet Count 207 K/mm3 (142-424); Red Blood Count 3.87 M/mm3 (4.20-5.40); Red Cell Distribution Width 14.9 % (11.5-17.5); White Blood Count 9.2 K/mm3 (4.8-10.8)
[2019-03-20 23:26] LABS: Alanine Aminotransferase 17 U/L (12-78); Albumin Level 3.5 gm/dL (3.4-5.0); Alkaline Phosphatase 202 U/L (46-116); Amylase 37 U/L (25-115); Anion Gap 12.5 mEq/L (5-15); Aspartate Amino Transferase 40 U/L (15-37); Bilirubin,Direct 0.8 mg/dL (0.0-0.2); Bilirubin,Indirect 0.5 mg/dL (0.0-0.9); Bilirubin,Total 1.3 mg/dL (0.2-1.0); Blood Urea Nitrogen 28 mg/dL (7-18); Calcium 9.5 mg/dL (8.5-10.1); Chloride 92 mmol/L (98-107); Glucose 144 mg/dL (74-106); Sodium 141 mmol/L (136-145); Total Protein,Serum 7.3 gm/dL (6.4-8.2)
[2019-03-20 23:36] LABS: C-Reactive Protein < 0.2 mg/dL (0.0-0.9); Carbon Dioxide 40 mmol/L (21.0-32.0)
[2019-03-21 00:15] LABS: Erythrocyte Sedimentation Rate 25 mm/hr (0-30)
--- NOTE | 2019-03-21 00:42 | Emergency Department Note ---
ED Disposition Clinical Impression: Renal insufficiency, Hiatal hernia Chest pain Qualifiers: Chest pain type: precordial pain Qualified Code(s): R07.2 - Precordial pain Congestive heart failure (CHF) Qualifiers: Heart failure type: unspecified Heart failure chronicity: acute on chronic Qualified Code(s): I50.9 - Heart failure, unspecified Disposition: Admitted as Observation Condition on Discharge: Good Referrals: Ronnie Powers MD [Primary Care Provider] - - Critical Care Critical Care Time: No Attestation: On 03/20/19, the high probability of a clinically significant, sudden or life threatening deterioration of the following system(s) required my full and direct attention, intervention and personal management. The time I documented below is in addition to time spent performing reported procedures but includes the following listed in this critical care notation. Medical Decision Making - Medical Records Medical records reviewed: Yes: I reviewed the patient's medical records. - Willam Inquiry Pt receiving controlled substance: No Vital Signs: 03/20/19 22:53 03/20/19 23:03 03/20/19 23:19 Temperature 97.8 F Temperature Source Oral Pulse Rate 54 L Pulse Rate [Right] 58 L 57 L Respiratory Rate 22 20 Blood Pressure [Right Arm] 134/70 135/83 Blood Pressure Mean [Right Arm] 91 100 Blood Pressure Source [Right Arm] Automatic Cuff Automatic Cuff Blood Pressure Position [Right Arm] Supine Supine 02 Sat by Pulse Oximetry 80 L 92 L 97 Oxygen Delivery Method Nasal Cannula Nasal Cannula Nasal Cannula Oxygen Flow Rate (LPM) 3 5 4 03/21/19 00:26 Temperature Temperature Source Pulse Rate Pulse Rate [Right] 59 L Respiratory Rate 18 Blood Pressure [Right Arm] 136/69 Blood Pressure Mean [Right Arm] 91 Blood Pressure Source [Right Arm] Automatic Cuff Blood Pressure Position [Right Arm] Supine 02 Sat by Pulse Oximetry 96 Oxygen Delivery Method Nasal Cannula Oxygen Flow Rate (LPM) 4 - Lab Data Lab results reviewed: Yes: I reviewed the patient's lab results. Lab Results 03/20/19 23:00: WBC 9.2, RBC 3.87 L, Hgb 11.8 L, Hct 38.5, MCV 99.5 H, MCH 30.5, MCHC 30.6 L, RDW 14.9, Plt Count 207, MPV 8.1, Neut % (Auto) 77.6, Lymph % (Auto) 9.1 L, [place] % (Auto) 8.2, Eos % (Auto) 4.2, Baso % (Auto) 1.0, Neut # (Auto) 7.1, Lymph # (Auto) 0.8, [place] # (Auto) 0.8, Eos # (Auto) 0.4, Baso # (Auto) 0.1, ESR 25 03/20/19 23:00: Sodium 141, Potassium 3.5, Chloride 92 L, Carbon Dioxide 40 H, Anion Gap 12.5, BUN 28 H, Creatinine 1.78 H, Estimated Creat Clear 33, Estimated GFR 27 L, Est GFR ( Amer) 33 L, Glucose 144 H, Calcium 9.5, Total Bilirubin 1.3 H, Direct Bilirubin 0.8 H, Indirect Bilirubin 0.5, AST 40 H, ALT 17, Alkaline Phosphatase 202 H, Troponin I 0.04, C-Reactive Protein < 0.2, Total Protein 7.3, Albumin 3.5, Amylase 37, Lipase 141 03/20/19 23:00: Lactate 2.0 03/20/19 23:00: Influenza Type A Ag Negative, Influenza Type B Ag Negative 03/20/19 23:00: B-Natriuretic Peptide 2140 H 03/20/19 23:01: Specimen Source Right radial, O2 % 4.5 lpm 38% nc, ABG pH 7.52 H , ABG pCO2 44.8, ABG pO2 93.5, ABG HCO3 35.4 H, ABG Total CO2 36.7 H, ABG O2 Saturation 97, ABG Base Excess 12.4 H, Tae Test Acceptable Result diagrams: 03/20/19 23:00 03/20/19 23:00 Orders (Tests/Meds): ED MEDICATIONS Generic Name Dose Route Start Last Admin Trade Name Freq PRN Reason Stop Dose Admin Sodium Chloride 8 ml 03/20/19 23:32 03/20/19 23:35 Sodium Chloride 0.9% 10ml Vial IV 04/19/19 23:31 8 ml NEEDED PRN Administration dilute pepcid Discontinued Medications Generic Name Dose Route Start Last Admin Trade Name Freq PRN Reason Stop Dose Admin Albuterol/Ipratropium 3 ml 03/20/19 23:01 03/20/19 23:18 Duoneb 3ml Neb IH 03/20/19 23:02 3 ml ONCE ONE Administration Aspirin 324 mg 03/20/19 23:01 03/20/19 23:15 Aspirin 81mg Chewable Tablet PO 03/20/19 23:02 324 mg ONCE ONE Administration Famotidine 20 mg 03/20/19 23:32 03/20/19 23:34 Pepcid 20mg/2ml Vial IV 03/20/19 23:33 20 mg ONCE ONE Administration Methylprednisolone Sodium Succinate 125 mg 03/20/19 23:01 03/20/19 23:15 Solu-Medrol 125mg/2ml Vial IV 03/20/19 23:02 125 mg ONCE ONE Administration Metoclopramide HCl 10 mg 03/20/19 23:32 03/20/19 23:34 Reglan 10mg/2ml Vial IVP 03/20/19 23:33 10 mg ONCE ONE Administration Ondansetron HCl 4 mg 03/20/19 23:32 03/20/19 23:34 Zofran 4mg/2ml Vial IV 03/20/19 23:33 4 mg ONCE ONE Administration ORDERS Category Date Time Status CT abdomen pelvis wo con Stat Cat Scan 03/20/19 23:01 Taken XR chest 2V Stat Exams 03/20/19 23:01 Taken Troponin I Q3H Lab 03/21/19 02:15 Ordered Troponin I Q3H Lab 03/21/19 05:15 Ordered Blood Culture Stat Micro 03/20/19 23:00 Received - Radiology Data #1 Image(s): Chest Image Reviewed: Yes I reviewed the patient's radiology image Preliminary Findings: Abnormal (effusions and hiatal hernia ) - CT Data CT Scan: Abdomen, Pelvis Time Received: 01:[address] Reviewed: Yes: I have viewed the radiologist's interpretation Preliminary Findings: Abnormal (see report ) - ECG Data Tracing #1 Normal Sinus Rhythm: Yes Ischemic changes: non-specific ST-T wave changes ECG compared to prior tracings: this ECG reveals significant changes - Physician Consults Physician Consulted: moira Reason -: Admission Chest Pain HPI - General Chief Complaint: Chest Pain Stated Complaint: chest pain Time Seen by Provider: 03/21/19 00:05 Mode of Arrival: Wheelchair Source of Information: Patient, Relative, Medical Record Limitations: No Limitations Description of Symptoms (Recalled from ER Triage Doc. by RN): Pt c/o chest pain and SOA - History of Present Illness HPI narrative: sudden onset of chest tightness with sob tonight at home - she reports this was a new pain MD complaint: chest pain indicative of cardiac Onset (ago): hour(s) Duration: now resolved Activity at onset: during rest Pain location: substernal Severity: moderate Associated symptoms: nausea Treatments prior to or on arrival for Cardiac Chest Pain: none - MJ Score for Non-Stemi Age of Patient: 80-89 years old Heart Rate: 50-69 bpm Systolic Blood Pressure: 120-139 mmhg Serum Creatinine: 1.60-1.99 mg/dl CHF [place] Class: II-Pulmonary Rales or Jug Other Risk Factors: None Non-Stemi Risk Score: 161 - Related Data On Oral Contraceptives: No Home Medications Medication Instructions Recorded Confirmed Aspirin [Aspir 81] 81 mg PO DAILY 06/17/18 03/20/19 Fluoxetine HCl 20 mg PO DAILY 06/17/18 03/20/19 Levothyroxine Sodium 100 mcg PO DAILY 06/17/18 03/20/19 [Levothyroxine 100mcg (0.1MG) Tab] Rosuvastatin Calcium 10 mg PO HS 06/17/18 03/20/19 Torsemide 20 mg PO BID 06/17/18 03/20/19 Nebivolol HCl [Bystolic] 2.5 mg PO DAILYP PRN 08/22/18 03/20/19 Potassium Chloride [Klor-Con] 60 meq PO TID 08/22/18 03/20/19 Warfarin Sodium 3 mg PO DAILY 08/22/18 03/20/19 Ferrous Gluconate [Ferrous 324 mg PO BID 11/18/18 03/20/19 Gluconate 324mg Tab] Tramadol HCl/Acetaminophen 1 tab PO Q6HP PRN 11/18/18 03/20/19 [Ultracet 37.5/325mg tablet] metOLazone [metOLazone 2.5mg 2.5 mg PO DAILY 11/18/18 03/20/19 Tablet] Amiodarone HCl [Amiodarone 100mg 100 mg PO DAILY 03/20/19 03/20/19 Tab] Multivitamin [Multivitamins] 1 each PO DAILY 03/20/19 03/20/19 Polyethylene Glycol 3350 [Miralax 17 gm PO DAILYP PRN 03/20/19 03/20/19 17gm Packet] Allergies Allergy/AdvReac Type Severity Reaction Status Date / Time No Known Allergies Allergy Verified 12/19/18 14:08 [facility] History - Hepatitis A Screen Drug use history?: No High risk sexual behaviors?: No History of sexually transmitted infection?: No Currently employed?: No Childcare worker?: No Do you have indoor plumbing?: Yes Do you have electricity?: Yes Attestation statement:: This patient has been screened for Hepatitis A risk factors. I have reviewed the patient's past medical history: Yes Medical History: Reports:: Congestive Heart Failure, Hyperlipidemia, Hypertension, Valvular Heart Disease Denies:: Cancer, Diabetes Mellitus Type 1, Diabetes Mellitus Type 2, Internal Pacemaker, MRSA Other Medical History: Reports: Thyroid Disease Other Surgeries: Yes: Cardiac Surgery, Tubal Ligation. No: Pacemaker Amputation: No Fractures: No Comment: heart valves replaced x2 [id number] - Social History Smoking Status: Never smoker Alcohol Intake: never Occupational Status: retired, disabled Housing: house Household Members: spouse Family Hx:: Cancer, Heart Attack ROS Obtained: Yes All systems reviewed & no additional complaints - Constitutional Constitutional: Denies fever(s) - Eyes Eyes: Denies change in vision - ENT Ears, Nose, Mouth, and Throat: Denies sore throat - Cardiovascular Cardiovascular: Reports chest pain, Reports dyspnea - Respiratory Respiratory: No cough - Gastrointestinal Gastrointestingal: Denies: abdominal pain - Genitourinary Male Genitourinary: Reports hematuria Female Genitourinary: Denies flank pain - Musculoskeletal Musculoskeletal: Denies joint swelling - Integumentary/Breasts Skin/Breast: Denies rash - Neurologic Neurologic: Denies seizure-like activity Physical Exam - General General appearance: alert - Head Head exam: normocephalic - Eye Eye exam: Present: PERRL, EOMI - ENT ENT exam: Present: mucous membranes dry - Neck Neck exam: Present: trachea midline - Respiratory Respiratory exam: Present: other (rhochi ). Absent: respiratory distress - Cardiovascular Cardiovascular exam: Present: regular rate, systolic murmur, +S4 - Abdominal Exam Abdominal exam: Present: soft - Extremities Exam Extremities exam: Present: pedal edema. Absent: calf tenderness - Neurological Exam Neurological exam: Present: alert, CN II-XII intact - Psychiatric Psychiatric exam: Present: normal affect - Skin Skin exam: Absent: rash
[2019-03-21 01:35] LABS: INR 1.41 (0.9-1.1); Prothrombin Time 14.4 seconds (9.4-11.8)
[2019-03-21 06:36] LABS: Calcium 9.3 mg/dL (8.5-10.1)
[2019-03-21 06:39] LABS: Basophils % 0.3 % (0.1-2.0); Eosinophils % 0.2 % (0.1-12.0); Hematocrit 37.9 % (37.0-47.0); Hemoglobin 11.7 g/dL (12.2-16.2); Lymphocytes # 0.4 K/mm3 (0.7-4.5); Lymphocytes % 5.4 % (10-50); Mean Corpuscular Volume 99.3 fl (81-99); Monocytes # 0.1 K/mm3 (0.1-1.0); Monocytes % 1.4 % (1.7-9.3); Neutrophils # 7.4 K/mm3 (1.8-7.8); Neutrophils % 92.8 % (37.0-80.0); Platelet Count 202 K/mm3 (142-424); Red Blood Count 3.82 M/mm3 (4.20-5.40)
--- NOTE | 2019-03-21 07:14 | Pharmacy Consult Notes ---
[facility] Pharmacy VTE Monitoring - Patient Demographics Admission date: 03/20/19 Report Date: 03/21/19 Time: 07:14 Allergies/Adverse Reactions: Patient Allergies No Known Allergies Allergy (Verified 12/19/18 14:08) Height: 1.7 m Weight: 88.11 kg Patient Problems: Current Active Problems (This Medical Record has been edited. Action required.) Congestive heart failure (CHF) (Acute) Renal insufficiency (Acute) Chest pain (Acute) Hiatal hernia (Acute) - VTE Risk Labs: VTE Related Lab Results Hgb 11.7 g/dL (12.2-16.2) L 03/21/19 05:28 Hct 37.9 % (37.0-47.0) 03/21/19 05:28 Plt Count 202 K/mm3 (142-424) 03/21/19 05:28 PT 14.4 seconds (9.4-11.8) H 03/21/19 00:00 INR 1.41 (0.9-1.1) H 03/21/19 00:00 BUN 27 mg/dL (7-18) H 03/21/19 05:28 Creatinine 1.58 mg/dL (0.55-1.02) H 03/21/19 05:28 Estimated Creat Clear 38 mL/min (50-200) 03/21/19 05:28 Was VTE Risk Assessment Performed: Yes VTE Score: 3 VTE Risk Level: Low Risk Clinical Trial Participant: No - Prophylaxis VTE Prophylaxis Ordered?: Yes Types of VTE Prophylaxis: TEDS Knee High, Pharmacological Pharmacologic Type: Warfarin
--- NOTE | 2019-03-21 07:22 | Electrocardiograph Report ---
APPROVED REPORT Exam: Resting ECG HR:58 bpm ECG Measurements Heart Rate 58 AXES AK 170 P 77 QRSd 102 QRS 82 QT 520 T0 QTc 510 <Conclusion> Undetermined rhythm ST & T wave abnormality, consider inferior ischemia ST & T wave abnormality, consider anterolateral ischemia Prolonged QT Abnormal ECG Electronically signed by : Ronnie Torres, 03/21/2019 07:21:00
--- NOTE | 2019-03-21 07:44 | History & Physical Report ---
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 Pain occurred within a couple hours of eating. She has never had a pain like this before. She reports associated nausea and shortness of breath with 2 episodes of vomiting. She has not no known coronary artery disease. Patient had been rather active earlier in the day and had not experienced any difficulties, including shortness of breath. Patient is unsure of what her treatments were in the emergency department. Review of the order history would indicate she was given a breathing treatment, steroids as well as metoclopramide. Work-up revealed a normal troponin, EKG did not have any ischemic changes, x-ray revealed cardiomegaly along with a hiatal hernia and pleural effusions and mild CHF. Patient was admitted for rule out of [place]. She does not remember when her chest pain finally resolved only that it improved after being seen in the emergency department. Since admission she has been given intravenous Lasix which she had an excellent response to. [facility] History I have reviewed the patient's past medical history: Yes Medical History: Reports:: Atrial Fibrillation, Congestive Heart Failure, Heart Murmur, Hyperlipidemia, Hypertension, Valvular Heart Disease Denies:: Cancer, Diabetes Mellitus Type 1, Diabetes Mellitus Type 2, Internal Pacemaker, MRSA *Have you ever received a pneumonia vaccine?: Yes *Have you received a flu vaccine this season?: Yes Other Medical History: Reports: Thyroid Disease Other Surgeries: Yes: Cardiac Surgery, Tubal Ligation. No: Pacemaker Amputation: No Fractures: No - *Social History Educational Level: Attended College Smoking Status: Never smoker Alcohol Intake: never *Occupational Status:: retired Housing: house Household Members: spouse *Travel in the last 8 weeks: None Family Hx:: Cancer Review of Systems - Constitutional Denies body ache(s), Denies chills, Denies fatigue, Denies fever(s), Denies malaise - *Cardiovascular Reports chest pain - *Respiratory Reports chest congestion, Reports shortness of breath, Denies shortness of breath with activity, Denies excessive phlegm production - *Gastrointestinal Reports belching, Reports bloating, Denies abdominal pain, Denies change in stools, Denies constipation - *Genitourinary Denies difficulty urinating - *Neurologic Denies abnormal walking, Denies seizure-like activity Meds Home Medications Medication Instructions Recorded Confirmed Type Aspirin [Aspir 81] 81 mg PO DAILY 06/17/18 03/21/19 History Fluoxetine HCl 20 mg PO DAILY 06/17/18 03/21/19 History Levothyroxine Sodium 100 mcg PO DAILY 06/17/18 03/21/19 History [Levothyroxine 100mcg (0.1MG) Tab] Rosuvastatin Calcium 10 mg PO HS 06/17/18 03/21/19 History Torsemide 20 mg PO BID 06/17/18 03/21/19 History Nebivolol HCl [Bystolic] 2.5 mg PO DAILYP PRN 08/22/18 03/21/19 History Potassium Chloride [Klor-Con] 60 meq PO TID 08/22/18 03/21/19 History Warfarin Sodium 3 mg PO DAILY 08/22/18 03/21/19 History Ferrous Gluconate [Ferrous 324 mg PO BID 11/18/18 03/21/19 History Gluconate 324mg Tab] Tramadol HCl/Acetaminophen 1 tab PO Q6HP PRN 11/18/18 03/21/19 History [Ultracet 37.5/325mg tablet] metOLazone [metOLazone 2.5mg 2.5 mg PO DAILY 11/18/18 03/21/19 History Tablet] Amiodarone HCl [Amiodarone 100mg 200 mg PO DAILY 03/20/19 03/21/19 History Tab] Multivitamin [Multivitamins] 1 each PO DAILY 03/20/19 03/21/19 History Polyethylene Glycol 3350 [Miralax 17 gm PO DAILYP PRN 03/20/19 03/20/19 History 17gm Packet] Allergies Allergy/AdvReac Type Severity Reaction Status Date / Time No Known Allergies Allergy Verified 12/19/18 14:08 Exam Vital signs and Labs for Last 24 Hours: Temp Pulse Resp BP Pulse Ox 98.3 F 60 16 129/81 94 L 03/21/19 04:00 03/21/19 04:00 03/21/19 04:00 03/21/19 04:00 03/21/19 04:00 Laboratory Results - last 24 hr 03/20/19 23:00: WBC 9.2, RBC 3.87 L, Hgb 11.8 L, Hct 38.5, MCV 99.5 H, MCH 30.5, MCHC 30.6 L, RDW 14.9, Plt Count 207, MPV 8.1, Neut % (Auto) 77.6, Lymph % (Auto) 9.1 L, Amador % (Auto) 8.2, Eos % (Auto) 4.2, Baso % (Auto) 1.0, Neut # (Auto) 7.1, Lymph # (Auto) 0.8, Amador # (Auto) 0.8, Eos # (Auto) 0.4, Baso # (Auto) 0.1, ESR 25 03/20/19 23:00: Sodium 141, Potassium 3.5, Chloride 92 L, Carbon Dioxide 40 H, Anion Gap 12.5, BUN 28 H, Creatinine 1.78 H, Estimated Creat Clear 33, Estimated GFR 27 L, Est GFR ( Amer) 33 L, Glucose 144 H, Calcium 9.5, Total Bilirubin 1.3 H, Direct Bilirubin 0.8 H, Indirect Bilirubin 0.5, AST 40 H, ALT 17, Alkaline Phosphatase 202 H, Troponin I 0.04, C-Reactive Protein < 0.2, Total Protein 7.3, Albumin 3.5, Amylase 37, Lipase 141 03/20/19 23:00: Lactate 2.0 03/20/19 23:00: Influenza Type A Ag Negative, Influenza Type B Ag Negative 03/20/19 23:00: B-Natriuretic Peptide 2140 H 03/20/19 23:01: Specimen Source Right radial, O2 % 4.5 lpm 38% nc, ABG pH 7.52 H , ABG pCO2 44.8, ABG pO2 93.5, ABG HCO3 35.4 H, ABG Total CO2 36.7 H, ABG O2 Saturation 97, ABG Base Excess 12.4 H, Tae Test Acceptable 03/21/19 00:00: PT 14.4 H, INR 1.41 H 03/21/19 02:10: Troponin I 0.05 03/21/19 05:28: Troponin I 0.05 03/21/19 05:28: WBC 8.0, RBC 3.82 L, Hgb 11.7 L, Hct 37.9, MCV 99.3 H, MCH 30.7, MCHC 31.0 L, RDW 15.0, Plt Count 202, MPV 8.0, Neut % (Auto) 92.8 H, Lymph % (Auto) 5.4 L, Amador % (Auto) 1.4 L, Eos % (Auto) 0.2, Baso % (Auto) 0.3, Neut # (Auto) 7.4, Lymph # (Auto) 0.4 L, Amador # (Auto) 0.1, Eos # (Auto) 0.0, Baso # (Auto) 0.0 03/21/19 05:28: Sodium 141, Potassium 3.0 L, Chloride 95 L, Carbon Dioxide 40 H, Anion Gap 9.0, BUN 27 H, Creatinine 1.58 H, Estimated Creat Clear 38, Estimated GFR 31 L, Est GFR ( Amer) 38 L, Glucose 142 H, Calcium 9.3, Magnesium 2.6 H I & O for Last 24 hours: Intake & Output 03/18/19 03/19/19 03/20/19 03/21/19 11:59 11:59 11:59 11:59 Intake Total Balance Weight 194 lb 4 oz - Constitutional no acute distress - *Routine HEENT Exam Head: Present: normocephalic Eye: Present: EOMI ENT: Present: mucous membranes moist - *Routine Neck Exam Present: supple. Absent: JVD - *Routine Respiratory Exam Present: crackles (Bilateral bases). Absent: prolonged expiratory phase - *Routine Cardiovascular Exam Present: RRR, Normal S1, Normal S2, murmur - *Routine Abdominal Exam Present: soft, normoactive bowel sounds, distended. Absent: tenderness, rebound, guarding, firm - *Routine Extremities Exam Present: edema (1+ below the knee). Absent: cyanosis, clubbing - *Routine Skin Exam Present: intact - *Routine Neurological Exam Present: alert Assessment and Plan (1) Acute CHF Current visit: Yes Status: Acute Category: Medical Code(s): I50.9 - Heart failure, unspecified Patient has responded well to diuretic. Continue diuretic intravenously twice during the day. Patient will continue her home potassium supplementation of 60 mEq 3 times per day. (2) Chronic kidney disease, stage III (moderate) Current visit: Yes Status: Acute Category: Medical Code(s): N18.3 - Chronic kidney disease, stage 3 (moderate) Stable (3) Hiatal hernia Current visit: Yes Status: Acute Category: Medical Code(s): K44.9 - Diaphragmatic hernia without obstruction or gangrene Patient does have a rather large hiatal hernia we will continue metoclopramide. Her has a strong belief that her chest pain is GI in origin (4) Chest pain Current visit: Yes Status: Acute Qualifiers: Chest pain type: precordial pain Qualified Code(s): R07.2 - Precordial pain Category: Medical Code(s): R07.9 - Chest pain, unspecified Patient is ruled out for [place]
[2019-03-21 09:53] LABS: Lymphocytes % 5 % (10-50); Neutrophils % 94 % (42-76); Total Cells Counted 100
[2019-03-21 09:54] LABS: Nucleated Red Blood Cells 1
--- NOTE | 2019-03-21 15:16 | Cardiology Report ---
APPROVED REPORT EXAM: Comprehensive 2D, Doppler, and color-flow Echocardiogram Media Sales Representative: Marisol Francisco RVT Ht: 5 ft 7 in Wt: 189lbs BSA: 1.97 BP: 135/83 mmHg Indications: Chest Pain, Shortness of Breath, Hyperlipidemia, Hypertension,? 2 valves replaced and another repaired in July 2018 2D Dimensions LVOT 1.50 cm (M/F) 1.5-2.5 M-Mode Dimensions RVDd 3.57 cm (0.9-2.6)LVDd 4.87 cm (3.5-5.7) LVDs 2.62 cm (3.5-5.7)IVSd 1.71 cm (0.6-1.1) PWd 0.99 cm (0.6-1.1)EF (Teich) 77.40% FS 46.20% EDV (Teich) 111.20 mL ESV (Teich) 25.10 mL LV Diastology E/A Ratio 1.82 Aortic Valve LVOT Max 101.00 (70-110 cm/s)LVOT VTI 19.44 cm Mitral Valve MV A Velocity 102.00 (40-130 cm/s)MV Mean Gr. 8.10 (<2mmHg) MV PHT 130.00 ms Left Ventricle Left atrium is moderately enlarged, left ventricle is normal size, mild concentric left ventricular hypertrophy, visually estimated ejection fraction 55% with no regional wall motion abnormality, there is flattening of the intraventricular septum during systole and diastole consistent with pressure and volume overload on right ventricle. Right Ventricle Right atrium and right ventricle moderately enlarged with normal contractility. Aortic Valve There is a bioprosthetic valve noted in the aortic position, aortic outflow velocities within normal range, there is no aortic insufficiency. Mitral Valve There appears to be a bioprosthetic valve in the mitral position, the mean gradient across valve is 8 mmHg, valve area is calculated 1.6 cm, there is no significant mitral regurgitation. Tricuspid Valve There is tricuspid valve ring seen, there is moderate to severe tricuspid regurgitation, calculated right ventricular systolic pressure is 47 mmHg. Pulmonic Valve Pulmonic valve is poorly visualized. Great Vessels Aortic root is normal size. Pericardium No significant pericardial effusion noted. Conclusion 1. Biatrial enlargement, normal left ventricular size, mild concentric left ventricular hypertrophy, visually estimated ejection fraction of 55% with no regional wall motion abnormality, diastolic parameters are inconclusive. There is flattening of the intraventricular septum during systole and diastole consistent with pressure and volume overload on right ventricle. 2. Moderately enlarged right atrium and right ventricle, contractility right ventricle is normal. 3. Bioprosthetic valve in the aortic position with acceptable gradient, there is no aortic insufficiency. 4. Bioprosthetic valve in the mitral position, mean gradient across valve is 8 mmHg, valve area is 1.6 cm. There is no significant mitral regurgitation seen. 5. Tricuspid valve is tricuspid ring, there is moderate to severe tricuspid regurgitation. Calculated right ventricular systolic pressure is 47 mmHg. 6. No significant pericardial effusion noted, inferior vena cava is dilated without significant inspiratory collapse. Electronically signed by : Yoshi Fortune, 03/21/2019 15:16:27
[2019-03-22 07:24] LABS: INR 1.62 (0.9-1.1); Prothrombin Time 16.5 seconds (9.4-11.8)
[2019-03-22 07:26] LABS: Anion Gap 5.5 mEq/L (5-15); Calcium 8.7 mg/dL (8.5-10.1)
--- NOTE | 2019-03-22 08:21 | Progress Note ---
Internal Medicine - PN: Subj *Date: 03/22/19 *Time: 08:18 Interval history: Patient reports feeling better. She has developed a congested cough this morning. She has not had any recurrence of chest pain she had good response to Lasix yesterday although volumes have not been measured due to patient's incontinence. She has had a good appetite. She is ambulating well. She remains on her supplemental oxygen which she wears at home. Additional history is provided by the daughter this morning who reports the patient has been experiencing symptoms of congestive heart failure such as dyspnea on exertion and orthopnea as an outpatient several weeks ago. It was at that time her metolazone use was increased from every other day to daily and since that time patient has responded well. Exam Vital signs and Labs for Last 24 Hours: Temp Pulse Resp BP Pulse Ox 98.5 F 58 L 18 110/60 93 L 03/22/19 08:00 03/22/19 08:00 03/22/19 08:00 03/22/19 08:00 03/22/19 08:00 Laboratory Results - last 24 hr 03/21/19 05:28: Total Counted 100, Neutrophils % (Manual) 94 H, Band Neutrophils % 1.0, Lymphocytes % (Manual) 5 L, Nucleated RBCs 1, Platelet Estimate Normal, Poikilocytosis 1+, Acanthocytes (Spur) 1+ 03/22/19 06:40: PT 16.5 H, INR 1.62 H 03/22/19 06:40: Sodium 138, Potassium 3.5, Chloride 95 L, Carbon Dioxide 41 H*, Anion Gap 5.5, BUN 42 H D, Creatinine 1.72 H, Estimated Creat Clear 35, Estimated GFR 28 L, Est GFR ( Amer) 34 L, Glucose 86, Calcium 8.7 I & O for Last 24 hours: Intake & Output 03/19/19 03/20/19 03/21/19 03/22/19 11:59 11:59 11:59 11:59 Intake Total 285 / 285 630 / 630 Balance 285 / 285 630 / 630 Weight 194 lb 4 oz 193 lb 8 oz Narrative: Patient is comfortable sitting up in bed. Lung exam reveals rales in the left lung base. Right base is clear this morning. Assessment and Plan (1) Acute CHF Current visit: Yes Status: Acute Category: Medical Code(s): I50.9 - Heart failure, unspecified (2) Chronic kidney disease, stage III (moderate) Current visit: Yes Status: Acute Category: Medical Code(s): N18.3 - Chronic kidney disease, stage 3 (moderate) (3) Hiatal hernia Current visit: Yes Status: Acute Category: Medical Code(s): K44.9 - Diaphragmatic hernia without obstruction or gangrene (4) Chest pain Current visit: Yes Status: Acute Qualifiers: Chest pain type: precordial pain Qualified Code(s): R07.2 - Precordial pain Category: Medical Code(s): R07.9 - Chest pain, unspecified - Assessment and plan all Dx Assessment and Plan for all problems:: Patient is improving. Continue to diurese. Anticipate discharge tomorrow.
[2019-03-23 07:19] LABS: INR 1.6 (0.9-1.1); Prothrombin Time 16.3 seconds (9.4-11.8)
--- NOTE | 2019-03-23 07:46 | Discharge Summary ---
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 Pain occurred within a couple hours of eating. She has never had a pain like this before. She reports associated nausea and shortness of breath with 2 episodes of vomiting. She has not no known coronary artery disease. Patient had been rather active earlier in the day and had not experienced any difficulties, including shortness of breath. Patient is unsure of what her treatments were in the emergency department. Review of the order history would indicate she was given a breathing treatment, steroids as well as metoclopramide. Work-up revealed a normal troponin, EKG did not have any ischemic changes, x-ray revealed cardiomegaly along with a hiatal hernia and pleural effusions and mild CHF. Patient was admitted for rule out of [place]. She does not remember when her chest pain finally resolved only that it improved after being seen in the emergency department. Since admission she has been given intravenous Lasix which she had an excellent response to. Hospital Course Hospital Course: Patient was admitted with a diagnosis of congestive heart failure. On the morning of admission she was given Lasix 40 mg IV. She had 2 additional doses throughout her first 24 hours of hospitalization with excellent diuretic response. On her initial lung exam she had bibasilar rales. As hospitalization progressed right side cleared first and left side had improved by the day of discharge although there were still some faint rales. Some of these abnormal sounds in the left I believe are chronic in nature. While patient had signs of fluid overload in discussion with family this was already known at patient had been experiencing worsening symptoms of congestive heart failure for several weeks. Her house mover helper had recommended she begin her metolazone daily which had improved her symptoms. Echocardiogram was performed during hospitalization which showed a normal ejection fraction but increased pressures in the right side of the heart suggestive of some fluid overload. Patient had chest pain on admission. She ruled out for [place]. Patient's strongly believed that her chest pain was indigestion because of her large hiatal hernia and some of the food they had eaten the night of admission. Patient's chest pain resolved in the emergency department the evening of presentation but patient does not recall exactly what she was given that helped improved her pain and review of the medical record could not find where patient was treated with nitroglycerin. This may have been given in route to the hospital. Nonetheless her chest pain resolved and did not recur. She ruled out for [place]. Echocardiogram showed a normal ejection fraction. Patient will have follow-up with her house mover helper Dr. Vasquez. A copy of the echocardiogram result has been pasted within this document It was also revealed that patient has been taking her amiodarone 3 times per week. Is believe this schedule likely affects the warfarin as well. I have recommended she take amiodarone daily and hold Bystolic. Objective Vital signs: Temp Pulse Resp BP Pulse Ox 97.5 F L 57 L 18 130/73 96 03/23/19 04:00 03/23/19 04:00 03/23/19 04:00 03/23/19 04:00 03/23/19 04:00 no acute distress - *Routine Respiratory Exam Present: rales (Left base) - *Routine Cardiovascular Exam Present: RRR, Normal S1, Normal S2 - *Routine Extremities Exam Comments: 1+ edema Results Completed studies during hospitalization [Text1]: EXAM: Comprehensive 2D, Doppler, and color-flow Echocardiogram Section Plotter Operator: Marisol Francisco RVT Ht: 5 ft 7 in Wt: 189lbs BSA: 1.97 BP: 135/83 mmHg Indications: Chest Pain, Shortness of Breath, Hyperlipidemia, Hypertension,? 2 valves replaced and another repaired in July 2018 2D Dimensions LVOT 1.50 cm (M/F) 1.5-2.5 M-Mode Dimensions RVDd 3.57 cm (0.9-2.6) LVDd 4.87 cm (3.5-5.7) LVDs 2.62 cm (3.5-5.7) IVSd 1.71 cm (0.6-1.1) PWd 0.99 cm (0.6-1.1) EF (Teich) 77.40% FS 46.20% EDV (Teich) 111.20 mL ESV (Teich) 25.10 mL LV Diastology E/A Ratio 1.82 Aortic Valve LVOT Max 101.00 (70-110 cm/s) LVOT VTI 19.44 cm Mitral Valve MV A Velocity 102.00 (40-130 cm/s) MV Mean Gr. 8.10 (<2mmHg) MV PHT 130.00 ms Left Ventricle Left atrium is moderately enlarged, left ventricle is normal size, mild concentric left ventricular hypertrophy, visually estimated ejection fraction 55% with no regional wall motion abnormality, there is flattening of the intraventricular septum during systole and diastole consistent with pressure and volume overload on right ventricle. Right Ventricle Right atrium and right ventricle moderately enlarged with normal contractility. Aortic Valve There is a bioprosthetic valve noted in the aortic position, aortic outflow velocities within normal range, there is no aortic insufficiency. Mitral Valve There appears to be a bioprosthetic valve in the mitral position, the mean gradient across valve is 8 mmHg, valve area is calculated 1.6 cm, there is no significant mitral regurgitation. Tricuspid Valve There is tricuspid valve ring seen, there is moderate to severe tricuspid regurgitation, calculated right ventricular systolic pressure is 47 mmHg. Pulmonic Valve Pulmonic valve is poorly visualized. Great Vessels Aortic root is normal size. Pericardium No significant pericardial effusion noted. Conclusion 1. Biatrial enlargement, normal left ventricular size, mild concentric left ventricular hypertrophy, visually estimated ejection fraction of 55% with no regional wall motion abnormality, diastolic parameters are inconclusive. There is flattening of the intraventricular septum during systole and diastole consistent with pressure and volume overload on right ventricle. 2. Moderately enlarged right atrium and right ventricle, contractility right ventricle is normal. 3. Bioprosthetic valve in the aortic position with acceptable gradient, there is no aortic insufficiency. 4. Bioprosthetic valve in the mitral position, mean gradient across valve is 8 mmHg, valve area is 1.6 cm. There is no significant mitral regurgitation seen. 5. Tricuspid valve is tricuspid ring, there is moderate to severe tricuspid regurgitation. Calculated right ventricular systolic pressure is 47 mmHg. 6. No significant pericardial effusion noted, inferior vena cava is dilated without significant inspiratory collapse. Electronically signed by : Yoshi Fortune, 03/21/2019 15:16:27 Labs on day of discharge: Labs from last 24 hours 03/23/19 06:20 PT 16.3 H INR 1.60 H Preliminary micro results at discharge 03/20/19 23:00 Blood Culture - Preliminary Blood NO GROWTH AFTER 48 HOURS 03/20/19 23:00 Blood Culture - Preliminary Blood NO GROWTH AFTER 48 HOURS DS: Diagnosis - Discharge Diagnosis (1) Acute systolic (congestive) heart failure Status: Acute (2) Chronic kidney disease, stage III (moderate) Status: Acute (3) Hiatal hernia Status: Acute (4) Chest pain Status: Acute Discharge Plan - Patient Discharge Instructions ACTIVITY: Continue current activity DIET: continue same diet Patient Instructions: Hiatal Hernia, Heart Failure, Angina, DI for Heart Failure, DI for Angina, DI for Hiatal Hernia, Warfarin, DI for Warfarin Therapy, Coumadin Vitamin K/ Diet, Coumadin Therapy Booklet - Follow up Plan Follow up with: Ronnie Powers MD [Primary Care Provider] - 03/28/19 Disposition: Home, Self-[facility] Medications: Home Medications Medication Instructions Recorded Confirmed Type Aspirin [Aspir 81] 81 mg PO DAILY 06/17/18 03/21/19 History Fluoxetine HCl 20 mg PO DAILY 06/17/18 03/21/19 History Levothyroxine Sodium 100 mcg PO DAILY 06/17/18 03/21/19 History [Levothyroxine 100mcg (0.1MG) Tab] Rosuvastatin Calcium 10 mg PO HS 06/17/18 03/21/19 History Torsemide 20 mg PO BID 06/17/18 03/21/19 History Warfarin Sodium 3 mg PO DAILY 08/22/18 03/21/19 History Ferrous Gluconate [Ferrous 324 mg PO BID 11/18/18 03/21/19 History Gluconate 324mg Tab] Tramadol HCl/Acetaminophen 1 tab PO Q6HP PRN 11/18/18 03/21/19 History [Ultracet 37.5/325mg tablet] metOLazone [metOLazone 2.5mg 2.5 mg PO DAILY 11/18/18 03/21/19 History Tablet] Amiodarone HCl [Amiodarone 100mg 200 mg PO DAILY 03/20/19 03/21/19 History Tab] Multivitamin [Multivitamins] 1 each PO DAILY 03/20/19 03/21/19 History Polyethylene Glycol 3350 [Miralax 17 gm PO DAILYP PRN 03/20/19 03/20/19 History 17gm Packet] Potassium Bicarbonate/Cit AC 50 meq PO BID 03/21/19 03/21/19 History [Klor-Con-Ef 25 Meq Tab Eff] Potassium Bicarbonate/Cit AC 75 meq PO 1200 03/21/19 03/21/19 History [Klor-Con-Ef 25 Meq Tab Eff] Prescriptions/Medication Reconciliation: Continued Fluoxetine HCl 20 mg PO DAILY Rosuvastatin Calcium 10 mg PO HS Torsemide 20 mg PO BID Levothyroxine Sodium [Levothyroxine 100mcg (0.1MG) Tab] 100 mcg PO DAILY Aspirin [Aspir 81] 81 mg PO DAILY Warfarin Sodium 3 mg PO DAILY Tramadol HCl/Acetaminophen [Ultracet 37.5/325mg tablet] 1 tab PO Q6HP PRN PRN Reason: PAIN metOLazone [metOLazone 2.5mg Tablet] 2.5 mg PO DAILY Ferrous Gluconate [Ferrous Gluconate 324mg Tab] 324 mg PO BID Amiodarone HCl [Amiodarone 100mg Tab] 200 mg PO DAILY Multivitamin [Multivitamins] 1 each PO DAILY Potassium Bicarbonate/Cit AC [Klor-Con-Ef 25 Meq Tab Eff] 75 meq PO 1200 Polyethylene Glycol 3350 [Miralax 17gm Packet] 17 gm PO DAILYP PRN PRN Reason: Constipation Potassium Bicarbonate/Cit AC [Klor-Con-Ef 25 Meq Tab Eff] 50 meq PO BID Discontinued Nebivolol HCl [Bystolic] 2.5 mg PO DAILYP PRN PRN Reason: see orders - Problem Reconciliation Problems Reviewed?: Yes
== END 2019-03-23 15:00 | disposition home or self-care (01) ==
LOC: ER 22:51 → 2ND 22:51
PROVIDERS: ADMIT Family Medicine; ATTEND Family Medicine
CPT/HCPCS: 36415; 71020; 71046; 74176; 80048; 80076; 82150; 82803; 83605; 83690; 83735; 83880; 84484; 85007; 85025; 85610; 85651; 86140; 87040; 87275; 87276; 93005; 93306; 94761; 96374; 96375; 99285; G0378; J2405

== ENCOUNTER → 2019-04-04 15:42 | Outpatient (CLI) | payer MEDICARE, BC, SELFPAY ==
[2019-04-04 15:59] LABS: INR 2.01 (0.9-1.1); Prothrombin Time 20.2 seconds (9.4-11.8)
[2019-04-04 16:57] LABS: Potassium 3.5 mmoL/L (3.5-5.1)
== END ==
PROVIDERS: Visit Provider Family Medicine
DX: E87.6 Hypokalemia (principal); N18.3 Chronic kidney disease, stage 3 (moderate); Z51.81 Encounter for therapeutic drug level monitoring; Z79.01 Long term (current) use of anticoagulants; I48.91 Unspecified atrial fibrillation
CPT/HCPCS: 36415; 84132; 85610

== ENCOUNTER → 2019-04-17 11:32 | Outpatient (CLI) | payer MEDICARE, BC, SELFPAY ==
[2019-04-17 12:21] LABS: INR 1.68 (0.9-1.1); Prothrombin Time 16.7 seconds (9.4-11.8)
[2019-04-17 16:22] LABS: Anion Gap 6.3 mEq/L (5-15); Blood Urea Nitrogen 28 mg/dL (7-18); Calcium 9.5 mg/dL (8.5-10.1); Chloride 92 mmol/L (98-107); Creatinine,Serum 1.62 mg/dL (0.55-1.02); Estimated Glomerular Filt Rate 30 ml/min (>60); GFR (African American) 37 ML/MIN (>60); Glucose 108 mg/dL (74-106); Potassium 3.3 mmoL/L (3.5-5.1); Sodium 139 mmol/L (136-145)
[2019-04-17 17:02] LABS: Carbon Dioxide 44 mmol/L (21.0-32.0)
== END ==
PROVIDERS: Visit Provider Internal Medicine Cardiovascular Disease
DX: I45.9 Conduction disorder, unspecified (principal); I69.398 Other sequelae of cerebral infarction; H53.9 Unspecified visual disturbance; I38 Endocarditis, valve unspecified; I10 Essential (primary) hypertension
CPT/HCPCS: 36415; 80048; 85610

== ENCOUNTER → 2019-04-21 10:44 | Outpatient (CLI) | payer MEDICARE, BC, SELFPAY ==
[2019-04-21 11:10] LABS: Anion Gap 4.6 mEq/L (5-15); Blood Urea Nitrogen 28 mg/dL (7-18); Calcium 9.5 mg/dL (8.5-10.1); Chloride 92 mmol/L (98-107); Creatinine,Serum 1.68 mg/dL (0.55-1.02); Estimated Glomerular Filt Rate 29 ml/min (>60); GFR (African American) 35 ML/MIN (>60); Glucose 128 mg/dL (74-106); Potassium 3.6 mmoL/L (3.5-5.1); Sodium 136 mmol/L (136-145)
[2019-04-21 11:14] LABS: INR 2.78 (0.9-1.1); Prothrombin Time 27.5 seconds (9.4-11.8)
[2019-04-21 11:20] LABS: Carbon Dioxide 43 mmol/L (21.0-32.0)
== END ==
PROVIDERS: Visit Provider Internal Medicine Cardiovascular Disease
DX: Z51.81 Encounter for therapeutic drug level monitoring (principal); Z79.01 Long term (current) use of anticoagulants; I48.91 Unspecified atrial fibrillation; E87.6 Hypokalemia; N18.3 Chronic kidney disease, stage 3 (moderate)
CPT/HCPCS: 36415; 80048; 85610

== ENCOUNTER → 2019-06-23 11:52 | Outpatient (CLI) | payer MEDICARE, BC, SELFPAY ==
[2019-06-23 14:17] LABS: Blood Urea Nitrogen 27 mg/dl (7-17); Chloride 84 mmol/L (98-107); Estimated Glomerular Filt Rate 31 ml/min (>60); GFR (African American) 37 ML/MIN (>60); Glucose 103 mg/dl (74-100); Potassium 4.1 mmoL/L (3.5-5.1); Sodium 136 mmol/L (136-145)
[2019-06-23 14:21] LABS: INR 1.15 (0.9-1.1); Prothrombin Time 11.9 seconds (9.4-11.8)
[2019-06-23 14:25] LABS: Basophils # 0.1 K/mm3 (0-0.2); Eosinophils # 0.2 K/mm3 (0.0-0.4); Eosinophils % 2.7 % (0.1-12.0); Hematocrit 42.8 % (37.0-47.0); Hemoglobin 12.8 g/dL (12.2-16.2); Lymphocytes # 0.7 K/mm3 (0.7-4.5); Lymphocytes % 9.4 % (10-50); Mean Corpuscular Hemoglobin 29.3 pg (27.0-31.2); Mean Corpuscular Volume 97.6 fl (81-99); Mean Platelet Volume 8.9 fl (7.4-10.4); Monocytes # 0.6 K/mm3 (0.1-1.0); Monocytes % 8.6 % (1.7-9.3); Neutrophils # 5.7 K/mm3 (1.8-7.8); Neutrophils % 78.3 % (37.0-80.0); Platelet Count 173 K/mm3 (142-424); Red Blood Count 4.38 M/mm3 (4.20-5.40); White Blood Count 7.3 K/mm3 (4.8-10.8)
[2019-06-23 14:27] LABS: Anion Gap 13.1 mEq/L (5-15); Carbon Dioxide 43 mmol/L (22.0-30.0)
== END ==
PROVIDERS: Visit Provider Family Medicine
DX: Z51.81 Encounter for therapeutic drug level monitoring (principal); Z79.01 Long term (current) use of anticoagulants
CPT/HCPCS: 80048; 85025; 85610

== ENCOUNTER → 2019-09-15 11:07 | Outpatient (CLI) | payer MEDICARE, BC, SELFPAY ==
[2019-09-15 11:42] LABS: Basophils # 0.1 K/mm3 (0-0.2); Basophils % 0.9 % (0.1-2.0); Eosinophils # 0.2 K/mm3 (0.0-0.4); Eosinophils % 2.6 % (0.1-12.0); Hematocrit 38.5 % (37.0-47.0); Hemoglobin 12.6 g/dL (12.2-16.2); Lymphocytes # 0.8 K/mm3 (0.7-4.5); Lymphocytes % 10.3 % (10-50); Mean Corpuscular HGB Conc 32.7 g/dL (31.8-35.4); Mean Corpuscular Hemoglobin 30.2 pg (27.0-31.2); Mean Corpuscular Volume 92.5 fl (81-99); Mean Platelet Volume 7.5 fl (7.4-10.4); Monocytes # 0.5 K/mm3 (0.1-1.0); Monocytes % 6.9 % (1.7-9.3); Neutrophils # 6.2 K/mm3 (1.8-7.8); Neutrophils % 79.3 % (37.0-80.0); Platelet Count 260 K/mm3 (142-424); Red Blood Count 4.17 M/mm3 (4.20-5.40); Red Cell Distribution Width 15.5 % (11.5-17.5); White Blood Count 7.8 K/mm3 (4.8-10.8)
[2019-09-15 13:23] LABS: Chloride 83 mmol/L (98-107); Sodium 135 mmol/L (136-145)
[2019-09-15 13:24] LABS: Potassium 3.3 mmoL/L (3.5-5.1)
[2019-09-15 13:26] LABS: Blood Urea Nitrogen 23 mg/dl (7-17); Estimated Glomerular Filt Rate 43 ml/min (>60); GFR (African American) 52 ML/MIN (>60)
[2019-09-15 13:27] LABS: Calcium 9.2 mg/dl (8.4-10.2); Glucose 72 mg/dl (74-100)
[2019-09-15 13:41] LABS: Anion Gap 8.3 mEq/L (5-15)
[2019-09-15 13:47] LABS: Carbon Dioxide 47 mmol/L (22.0-30.0)
== END ==
PROVIDERS: Visit Provider Family Medicine
DX: N18.3 Chronic kidney disease, stage 3 (moderate); I12.9 Hypertensive chronic kidney disease with stage 1 through stage 4 chronic kidney disease, or unspecified chronic kidney disease
CPT/HCPCS: 80048; 85025

== ENCOUNTER → 2019-09-29 10:59 | Outpatient (CLI) | payer MEDICARE, BC, SELFPAY ==
[2019-09-29 15:05] LABS: Potassium 3.9 mmoL/L (3.5-5.1)
== END ==
PROVIDERS: Visit Provider Family Medicine
DX: N18.3 Chronic kidney disease, stage 3 (moderate) (principal); E87.6 Hypokalemia
CPT/HCPCS: 84132

== ENCOUNTER 2019-10-15 00:12 | Emergency (ER) | payer MEDICARE, BC, SELFPAY ==
--- NOTE | 2019-10-15 | ECG_ITS ---
APPROVED REPORT Exam: Resting ECG HR:63 bpm ECG Measurements Heart Rate 63 AXES QRSd 110 QRS 100 QT 546 T 85 QTc 558 <Conclusion> Junctional rhythm with occasional premature ventricular complexes Rightward axis Nonspecific T wave abnormality Prolonged QT Abnormal ECG Electronically signed by : Ronnie Torres, 10/17/2019 17:10:45
[2019-10-15 00:03] VITALS: BP 142/79; PULSE 64; RESP 16; TEMP 37; O2SAT 80; BMI 29.0
--- NOTE | 2019-10-15 00:13 | HMH.EDGENADL ---
ED Disposition Clinical Impression: Hiatal hernia Disposition: Home, Self-Care Condition on Discharge: Fair Instructions: DI for Nausea -- Adult, DI for Hiatal Hernia Additional Instructions: CT of abdomen and pelvis shows Large hiatal hernia is prsent containing a moderate amount of residual ingested material within the intrathoracic stomach' Spoke to dr Edward who is surgeon community relations coordinator today. He advised that patient can be safely dc home with advice to use a full liquid diet which can be slowly advanced to pureed diet. Please also follow up with a community relations director for advise on diet Referrals: Ronnie Powers MD [Primary Care Provider] - Foster Edward MD [Staff Physician] - Time of Disposition: 02:32 - Critical Care Critical Care Time: No Attestation: On , the high probability of a clinically significant, sudden or life threatening deterioration of the following system(s) required my full and direct attention, intervention and personal management. The time I documented below is in addition to time spent performing reported procedures but includes the following listed in this critical care notation. Medical Decision Making - Medical Records Medical records reviewed: Yes: I reviewed the patient's medical records. MR Comment: [place] full and short of breath after eating a large meal at a restaurant. Patient does have a h/o hiatal hernia. Patient's labs have been reviewed..It does show elevated BNP consistent with h/o CHF secondary to valvular leakage repaired with an artificial valve. Troponin is mildly elevated secondary to CHF. CT of abdomen and pelvis shows Large hiatal hernia is prsent containing a moderate amount of residual ingested material within the intrathoracic stomach'. Spoke to dr Edward who is surgeon community relations coordinator today. He advised that patient can be safely dc home with advice to use a full liquid diet which can be slowly advanced to pureed diet. Spoke at length to patient's daughter also avbout it. Patient is herself feeling better after gradually improving - Willam Inquiry Pt receiving controlled substance: No Vital Signs: 10/15/19 00:03 10/15/19 01:03 10/15/19 01:54 Temperature 98.6 F Temperature Source Oral Pulse Rate [Left Radial] 64 55 L 55 L Respiratory Rate 16 16 16 Blood Pressure [Right Arm] 142/79 H 165/90 H 165/90 H Blood Pressure Mean [Right Arm] 100 115 115 Blood Pressure Source [Right Arm] Automatic Cuff Automatic Cuff Automatic Cuff Blood Pressure Position [Right Arm] Sitting Sitting Supine 02 Sat by Pulse Oximetry 80 L 92 L 92 L Oxygen Delivery Method Room Air Nasal Cannula Nasal Cannula Oxygen Flow Rate (LPM) 3 3 - Lab Data Lab results reviewed: Yes: I reviewed the patient's lab results. Lab Results 10/15/19 00:10: WBC 9.4, RBC 4.07 L, Hgb 12.5, Hct 38.2, MCV 93.9, MCH 30.6, MCHC 32.6, RDW 15.7, Plt Count 227, MPV 8.1, Neut % (Auto) 76.8, Lymph % (Auto) 11.7, Sanders % (Auto) 9.5 H, Eos % (Auto) 1.2, Baso % (Auto) 0.8, Neut # (Auto) 7.2, Lymph # (Auto) 1.1, Sanders # (Auto) 0.9, Eos # (Auto) 0.1, Baso # (Auto) 0.1 10/15/19 00:10: Sodium 137, Potassium 3.9, Chloride 87 L, Carbon Dioxide 44 H*, Anion Gap 9.9, BUN 21 H, Creatinine 1.00, Estimated Creat Clear 56, Estimated GFR 53 L, Est GFR ( Amer) 64, Glucose 107 H, Calcium 9.3, Total Bilirubin 2.0 H, AST 50 H, ALT 18, Alkaline Phosphatase 288 H, Troponin I 0.06 H, Total Protein 6.6, Albumin 3.6, Globulin 3.0, Albumin/Globulin Ratio 1.2, Amylase 44, Lipase 80 10/15/19 00:10: NT-Pro-B Natriuret Pep 68955 H Result diagrams: 10/15/19 00:10 10/15/19 00:10 Orders (Tests/Meds): ED MEDICATIONS Generic Name Dose Route Start Last Admin Trade Name Freq PRN Reason Stop Dose Admin Sodium Chloride 1,000 mls @ 999 mls/hr 10/15/19 00:30 10/15/19 01:15 Sod Chlor 0.9% 1000ml Bag IV 10/15/19 01:30 999 mls/hr .Q1H1M LORETTA Administration Discontinued Medications Generic Name Dose Route Start Last Admin Trade Name Freq PRN Reason S
--- NOTE | 2019-10-15 00:16 | CT_ITS ---
PROCEDURE: CT ABDOMEN PELVIS WO CON CLINICAL INDICATION: general abd. pain Nausea, vomiting, abdominal pain COMPARISON: CT ABDOMEN PELVIS WO CON from 04/24/2019 TECHNIQUE: Axial images obtained with sagittal and coronal reformats. All CT scans at the facility use one or more dose reduction, viz: automated exposure control, ma/kV adjustment per patient size (including targeted exams where dose is matched to indication, i.e. head), or iterative reconstruction technique. FINDINGS: There is cardiomegaly with large hiatal hernia. Mitral valve annular calcifications, aortic valve calcifications and coronary artery calcifications are present. There is consolidation in the left lower lobe with small bilateral pleural effusions and bibasilar atelectasis. Left lower lobe consolidation/volume loss is worse. There is ascites with increase in subdiaphragmatic fluid on the left. The liver, spleen, adrenal glands, have an unremarkable appearance. There is pancreatic atrophy of the body and tail with some increased density in the region the pancreatic head which may be related to lack of atrophy not significantly changed. No renal or ureteral calculi. No hydronephrosis. No intestinal obstruction or free air. Fluid is present in the pelvis. There is calcification of the uterus suggesting fibroid involvement and or dystrophic calcification. There is diffuse anasarca. There has been improvement in the left retroperitoneal hemorrhage. A 14 mm nodular opacity is present in the left pericolic gutter inferiorly which could be related to some residual sequela from the hemorrhage. There is diffuse colonic diverticulosis but no evidence of diverticulitis. There is lumbar scoliosis convex right. IMPRESSION: 1. Mild diffuse ascites which is increased compared to the previous exam. Mild anasarca 2. Near complete resolution of the retroperitoneal hemorrhage on the left. Small nodular density noted in the region of the previously noted retroperitoneal hemorrhage in could be related to some residual blood or lymph node. 3. Colonic diverticulosis without evidence of diverticulitis. 4. Moderate-sized hiatal hernia with bilateral effusions cardiomegaly and left lower lobe consolidation/volume loss. Dictated by: Tae Degroot MD 10/15/2019 05:45 Electronically signed by Tae Degroot MD in [place] 10/15/2019 05:46
[2019-10-15 00:27] LABS: Basophils # 0.1 K/mm3 (0-0.2); Basophils % 0.8 % (0.1-2.0); Eosinophils # 0.1 K/mm3 (0.0-0.4); Eosinophils % 1.2 % (0.1-12.0); Hematocrit 38.2 % (37.0-47.0); Hemoglobin 12.5 g/dL (12.2-16.2); Lymphocytes # 1.1 K/mm3 (0.7-4.5); Lymphocytes % 11.7 % (10-50); Mean Corpuscular HGB Conc 32.6 g/dL (31.8-35.4); Mean Corpuscular Hemoglobin 30.6 pg (27.0-31.2); Mean Corpuscular Volume 93.9 fl (81-99); Mean Platelet Volume 8.1 fl (7.4-10.4); Monocytes # 0.9 K/mm3 (0.1-1.0); Monocytes % 9.5 % (1.7-9.3); Neutrophils # 7.2 K/mm3 (1.8-7.8); Neutrophils % 76.8 % (37.0-80.0); Platelet Count 227 K/mm3 (142-424); Red Blood Count 4.07 M/mm3 (4.20-5.40); Red Cell Distribution Width 15.7 % (11.5-17.5); White Blood Count 9.4 K/mm3 (4.8-10.8)
[2019-10-15 00:31] LABS: Alanine Aminotransferase 18 U/L (12-78); Albumin Level 3.6 g/dl (3.5-5.0); Albumin/Globulin Ratio 1.2 (1.1-1.8); Alkaline Phosphatase 288 U/L (38-126); Amylase 44 U/L (30-110); Aspartate Amino Transferase 50 U/L (14-36); Blood Urea Nitrogen 21 mg/dl (7-17); Calcium 9.3 mg/dl (8.4-10.2); Chloride 87 mmol/L (98-107); Creatinine Clearance Estimated 56 mL/min (50-200); Estimated Glomerular Filt Rate 53 ml/min (>60); GFR (African American) 64 ML/MIN (>60); Glucose 107 mg/dl (74-100); Lipase 80 U/L (23-300); Potassium 3.9 mmoL/L (3.5-5.1); Sodium 137 mmol/L (136-145); Total Protein,Serum 6.6 g/dl (6.3-8.2)
[2019-10-15 00:40] LABS: NT Pro Brain Natriuretic Pep. 11000 pg/mL (0-450)
[2019-10-15 00:43] LABS: Anion Gap 9.9 mEq/L (5-15); Carbon Dioxide 44 mmol/L (22.0-30.0); Troponin I 0.06 ng/ml (0.00-0.034)
[2019-10-15 01:03] VITALS: BP 165/90; PULSE 55; RESP 16; O2SAT 92
[2019-10-15 01:54] VITALS: BP 165/90; PULSE 55; RESP 16; O2SAT 92
[2019-10-15 02:26] VITALS: BP 148/79; PULSE 56; RESP 15; O2SAT 94
[2019-10-15 03:01] VITALS: BP 156/83; PULSE 61; RESP 15; TEMP 37; O2SAT 94
== END 2019-10-15 03:05 | disposition home or self-care (01) ==
PROVIDERS: Emergency Provider Emergency Medicine; PCP Family Medicine
DX: I50.23 Acute on chronic systolic (congestive) heart failure (principal); Z95.2 Presence of prosthetic heart valve; E78.5 Hyperlipidemia, unspecified; I10 Essential (primary) hypertension; I48.91 Unspecified atrial fibrillation; Z79.899 Other long term (current) drug therapy
CPT/HCPCS: 74176; 80053; 82150; 83690; 83880; 84484; 85025; 93005; 96365; 96375; 99284; J2405

== ENCOUNTER → 2019-10-17 11:27 | Outpatient (CLI) | payer MEDICARE, BC, SELFPAY | PROVIDERS: Visit Provider Family Medicine | DX: E87.6 Hypokalemia (principal); N18.3 Chronic kidney disease, stage 3 (moderate) | CPT/HCPCS: 84132 ==

== ENCOUNTER → 2019-11-13 13:15 | Outpatient (CLI) | payer MEDICARE, BC, SELFPAY ==
[2019-11-13 13:46] LABS: Potassium 3.7 mmoL/L (3.5-5.1)
== END ==
LOC: LAB 13:16 → LAB.DROPOF 11-14 08:19
PROVIDERS: Visit Provider Family Medicine
DX: E87.5 Hyperkalemia (principal)
CPT/HCPCS: 84132

== ENCOUNTER 2019-11-19 21:17 | Inpatient (IN) | payer MEDICARE, BC, SELFPAY ==
[2019-11-19 21:17] VITALS: BP 145/93; PULSE 97; RESP 20; TEMP 36.7; O2SAT 98; BMI 26.6
--- NOTE | 2019-11-19 21:19 | ECG_ITS ---
APPROVED REPORT Exam: Resting ECG HR:60 bpm ECG Measurements Heart Rate 60 AXES QRSd 120 QRS 102 QT 474 T 11 QTc 474 <Conclusion> Atrial fibrillation with a competing junctional pacemaker Rightward axis Nonspecific intraventricular conduction delay Abnormal ECG Electronically signed by : Ronnie Torres, 11/21/2019 07:13:22
--- NOTE | 2019-11-19 21:26 | XR_ITS ---
PROCEDURE: XR CHEST 2V CLINICAL HISTORY: SOA Shortness of air, weakness COMPARISON: 04/24/2019 FINDINGS: Prior CABG with cardiomegaly and pulmonary venous congestion consistent with CHF. Tri valvular replacement noted.. There is a small left pleural effusion. There is a large hiatal hernia. There is increased density in the right lower lobe consistent with atelectasis or infiltrate. No acute bony abnormalities. IMPRESSION: CHF with left effusion, large hiatal hernia with right lower lobe atelectasis and/or infiltrate Dictated by: Tae Degroot MD 11/19/2019 22:05 Tae Degroot MD in [place] 11/19/2019 22:05
[2019-11-19 21:30] VITALS: O2SAT 95
[2019-11-19 21:31] LABS: ABG Base Excess 17.3 mmol/L (-2.4-2.3); ABG HCO3 40.1 mmhg (22.0-26.0); ABG Oxygen Saturation 95 % (90-100); ABG PH 7.52 mmol/L (7.35-7.45); ABG PO2 71.6 mmhg (80-100); ABG TCO2 41.6 mmhg (23-27)
[2019-11-19 21:33] LABS: Allen's Test Acceptable; Oxygen 3 lpm %
--- NOTE | 2019-11-19 21:33 | PC.NURSE ---
received ABG results from respiratory at this time. results given to Dr Mendez
[2019-11-19 21:34] LABS: Source Left Radial
[2019-11-19 21:39] LABS: Chloride 87 mmol/L (98-107); Potassium 5.1 mmoL/L (3.5-5.1); Sodium 136 mmol/L (136-145)
[2019-11-19 21:41] LABS: Blood Urea Nitrogen 20 mg/dl (7-17); Creatinine Clearance Estimated 52 mL/min (50-200); Estimated Glomerular Filt Rate 53 ml/min (>60); GFR (African American) 64 ML/MIN (>60)
[2019-11-19 21:42] LABS: Alanine Aminotransferase 16 U/L (12-78); Albumin Level 3.7 g/dl (3.5-5.0); Albumin/Globulin Ratio 1.1 (1.1-1.8); Alkaline Phosphatase 194 U/L (38-126); Aspartate Amino Transferase 52 U/L (14-36); Bilirubin,Total 2.6 mg/dl (0.2-1.3); Globulin 3.4 g/dL (1.3-3.2); Glucose 110 mg/dl (74-100); Total Protein,Serum 7.1 g/dl (6.3-8.2)
[2019-11-19 21:47] LABS: C-Reactive Protein 36.9 mg/L (0-4)
[2019-11-19 21:50] LABS: Anion Gap 14.1 mEq/L (5-15)
[2019-11-19 21:52] LABS: Carbon Dioxide 40 mmol/L (22.0-30.0)
[2019-11-19 21:56] LABS: Basophils # 0.1 K/mm3 (0-0.2); Basophils % 0.9 % (0.1-2.0); Eosinophils # 0.1 K/mm3 (0.0-0.4); Eosinophils % 0.9 % (0.1-12.0); Hematocrit 42.8 % (37.0-47.0); Hemoglobin 14.1 g/dL (12.2-16.2); Lymphocytes # 0.8 K/mm3 (0.7-4.5); Lymphocytes % 7.5 % (10-50); Mean Corpuscular Hemoglobin 30.8 pg (27.0-31.2); Mean Corpuscular Volume 93.4 fl (81-99); Monocytes % 9.6 % (1.7-9.3); Neutrophils # 8.4 K/mm3 (1.8-7.8); Neutrophils % 81.1 % (37.0-80.0); Platelet Count 276 K/mm3 (142-424); Red Blood Count 4.58 M/mm3 (4.20-5.40); Red Cell Distribution Width 15.9 % (11.5-17.5); Troponin I 0.05 ng/ml (0.00-0.034); White Blood Count 10.3 K/mm3 (4.8-10.8)
[2019-11-19 21:57] LABS: Erythrocyte Sedimentation Rate 16 mm/hr (0-30)
[2019-11-19 22:00] LABS: NT Pro Brain Natriuretic Pep. 16800 pg/mL (0-450)
[2019-11-19 22:05] VITALS: BP 154/84; PULSE 69; RESP 24; O2SAT 96
--- NOTE | 2019-11-19 23:01 | HMH.EDSOB ---
ED Disposition Clinical Impression: Hiatal hernia, History of atrial fibrillation Congestive heart failure (CHF) Qualifiers: Heart failure type: combined systolic and diastolic Heart failure chronicity: acute on chronic Qualified Code(s): I50.43 - Acute on chronic combined systolic (congestive) and diastolic (congestive) heart failure Disposition: Admitted as Observation Condition on Discharge: Good - Critical Care Critical Care Time: No Attestation: On 11/19/19, the high probability of a clinically significant, sudden or life threatening deterioration of the following system(s) required my full and direct attention, intervention and personal management. The time I documented below is in addition to time spent performing reported procedures but includes the following listed in this critical care notation. Medical Decision Making - Medical Records Medical records reviewed: Yes: I reviewed the patient's medical records. - Willam Inquiry Pt receiving controlled substance: No Vital Signs: 11/19/19 21:17 11/19/19 22:05 11/19/19 23:36 Temperature 98.1 F Temperature Source Oral Pulse Rate [Left] 97 H 69 65 Respiratory Rate 20 24 25 H Blood Pressure [Right Arm] 145/93 H 154/84 H 151/85 H Blood Pressure Mean [Right Arm] 110 107 107 Blood Pressure Source [Right Arm] Automatic Cuff Automatic Cuff Automatic Cuff Blood Pressure Position [Right Arm] Supine 02 Sat by Pulse Oximetry 98 96 94 L Oxygen Delivery Method Nasal Cannula Nasal Cannula Nasal Cannula Oxygen Flow Rate (LPM) 3 2 2 - Lab Data Lab results reviewed: Yes: I reviewed the patient's lab results. Lab Results 11/19/19 21:14: WBC 10.3, RBC 4.58, Hgb 14.1, Hct 42.8, MCV 93.4, MCH 30.8, MCHC 33.0, RDW 15.9, Plt Count 276, MPV 8.0, Neut % (Auto) 81.1 H, Lymph % (Auto) 7.5 L, Coffey % (Auto) 9.6 H, Eos % (Auto) 0.9, Baso % (Auto) 0.9, Neut # (Auto) 8.4 H, Lymph # (Auto) 0.8, Coffey # (Auto) 1.0, Eos # (Auto) 0.1, Baso # (Auto) 0.1, ESR 16 11/19/19 21:14: Sodium 136, Potassium 5.1, Chloride 87 L, Carbon Dioxide 40 H, Anion Gap 14.1, BUN 20 H, Creatinine 1.00, Estimated Creat Clear 52, Estimated GFR 53 L, Est GFR ( Amer) 64, Glucose 110 H, Calcium 10.0, Total Bilirubin 2.6 H, AST 52 H, ALT 16, Alkaline Phosphatase 194 H, Troponin I 0.05 H, C-Reactive Protein 36.9 H, Total Protein 7.1, Albumin 3.7, Globulin 3.4 H, Albumin/Globulin Ratio 1.1 11/19/19 21:14: NT-Pro-B Natriuret Pep 57994 H 11/19/19 21:25: Specimen Source Left radial, O2 % 3 lpm, ABG pH 7.52 H, ABG pCO2 50.0 H, ABG pO2 71.6 L, ABG HCO3 40.1 H, ABG Total CO2 41.6 H, ABG O2 Saturation 95, ABG Base Excess 17.3 H, Tae Test Acceptable Result diagrams: 11/19/19 21:14 11/19/19 21:14 Orders (Tests/Meds): ED MEDICATIONS Discontinued Medications Generic Name Dose Route Start Last Admin Trade Name Freq PRN Reason Stop Dose Admin Furosemide 20 mg 11/19/19 21:35 11/19/19 21:39 Lasix 20mg/2ml Vial IV 11/19/19 21:36 20 mg ONCE ONE Administration Methylprednisolone Sodium Succinate 125 mg 11/19/19 21:26 11/19/19 21:29 Solu-Medrol 125mg/2ml Vial IV 11/19/19 21:27 125 mg ONCE ONE Administration ORDERS Category Date Time Status Coronavirus 19 Swab (OUTPT) Routine Lab 11/19/19 23:20 Received Troponin I Q3H Lab 11/20/19 00:24 Received Troponin I Q3H Lab 11/20/19 03:30 Ordered - Radiology Data #1 Image(s): Chest Image Reviewed: Yes I reviewed the patient's radiology image Preliminary Findings: Abnormal (chf ) - ECG Data Tracing #1 Arrhythmias present: afib Ischemic changes: non-specific ST-T wave changes - Physician Consults Physician Consulted: luz marina Reason -: Admission Resp/SOB HPI - General Chief Complaint: Shortness of Breath/Dyspnea Stated Complaint: SOB Time Seen by Provider: 11/19/19 21:40 Mode of Arrival: EMS Source of Information: Patient, EMS, Medical Record Limitations: No Limitations Description of Symptoms (Recalled from ER
[2019-11-19 23:36] VITALS: BP 151/85; PULSE 65; RESP 25; O2SAT 94
[2019-11-20] VITALS (21 sets, daily range): BP systolic 120–159; BP diastolic 60–99; PULSE 58–86; RESP 16–30; TEMP 36.4–37; O2SAT 85–98; BMI 26.1
[2019-11-20 00:53] LABS: Troponin I 0.05 ng/ml (0.00-0.034)
--- NOTE | 2019-11-20 02:14 | PC.NURSE ---
report called to Efrain RN
--- NOTE | 2019-11-20 02:27 | PC.NURSE ---
PT ARRIVED VIA STRETCHER WITH NSG STAFF FROM ED AT 0225
[2019-11-20 03:40] LABS: Troponin I 0.05 ng/ml (0.00-0.034)
--- NOTE | 2019-11-20 03:45 | PC.NURSE ---
She is A&Ox4. Reports SOA while at rest. Continues on 3LPM n/c of which she reports she is home dependent. She did not bring any of her home medications with her. She has a stage 2 on her coccyx and a skin tear on her LFA. Both have DSGs over that are C/D/I. She received a complete bed bath. Reports that she ambulates with a walker at home. Was found to be incontinent of urine in the ER; therefore, she is wearing a brief and a purewick has been placed for output monitoring. Her urine is yellow, clear. She denies pain.
--- NOTE | 2019-11-20 05:19 | PC.NURSE ---
She is anxious. Screaming out that she cannot breathe. Will obtain VS and call MD chemical equipment controller.
[2019-11-20 06:25] LABS: Chloride 87 mmol/L (98-107); Potassium 3.3 mmoL/L (3.5-5.1); Sodium 139 mmol/L (136-145)
[2019-11-20 06:28] LABS: Blood Urea Nitrogen 20 mg/dl (7-17); Calcium 10.1 mg/dl (8.4-10.2); Creatinine Clearance Estimated 51 mL/min (50-200); Estimated Glomerular Filt Rate 53 ml/min (>60); GFR (African American) 64 ML/MIN (>60); Glucose 174 mg/dl (74-100)
[2019-11-20 06:29] LABS: Magnesium 2.2 mg/dl (1.6-2.3)
[2019-11-20 06:36] LABS: Anion Gap 18.3 mEq/L (5-15); Carbon Dioxide 37 mmol/L (22.0-30.0)
[2019-11-20 06:55] LABS: Basophils % 0.2 % (0.1-2.0); Eosinophils % 0.2 % (0.1-12.0); Hematocrit 44.7 % (37.0-47.0); Hemoglobin 14.2 g/dL (12.2-16.2); Lymphocytes # 0.4 K/mm3 (0.7-4.5); Lymphocytes % 4.6 % (10-50); Mean Corpuscular HGB Conc 31.8 g/dL (31.8-35.4); Mean Corpuscular Hemoglobin 30.3 pg (27.0-31.2); Mean Corpuscular Volume 95.2 fl (81-99); Mean Platelet Volume 7.8 fl (7.4-10.4); Monocytes # 0.1 K/mm3 (0.1-1.0); Monocytes % 1.4 % (1.7-9.3); Neutrophils # 7.3 K/mm3 (1.8-7.8); Neutrophils % 93.6 % (37.0-80.0); Platelet Count 244 K/mm3 (142-424); Red Blood Count 4.69 M/mm3 (4.20-5.40); Red Cell Distribution Width 15.9 % (11.5-17.5); White Blood Count 7.8 K/mm3 (4.8-10.8)
[2019-11-20 06:58] LABS: MANUAL DIFFERENTIAL MANUAL DIFFERENTIAL (MANUAL DIFF)
--- NOTE | 2019-11-20 07:20 | HMH.HP ---
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 Patient denies cough, fevers, chills. She did notice increased swelling of her lower extremities. Patient denies chest pain. When dyspnea became so severe she presented to the emergency department. In the ER patient was diagnosed with acute congestive heart failure. Patient was given 20 mg of IV Lasix with modest response. Early this morning around 5:30 AM she was given an additional 40 mg of IV Lasix by the on-call physician. Nursing staff reports patient has been quite anxious since admission and she was also given a single dose of IV Ativan early this morning. This has allowed the patient to sleep. She does awaken easily however during interview and exam [facility] History I have reviewed the patient's past medical history: Yes Medical History: Reports:: Atrial Fibrillation, Congestive Heart Failure, Heart Murmur, Hyperlipidemia, Hypertension, Valvular Heart Disease (Aortic valve disease, mitral valve disease, tricuspid disease) Denies:: Cancer, Diabetes Mellitus Type 1, Diabetes Mellitus Type 2, Internal Pacemaker, MRSA *Have you ever received a pneumonia vaccine?: Yes *Have you received a flu vaccine this season?: No Other Medical History: Reports: Thyroid Disease Other Surgeries: Yes: Cardiac Surgery, Tubal Ligation. No: Pacemaker Amputation: No Fractures: No - *Social History Last grade of school completed: Some college Smoking Status: Never smoker Alcohol Intake: never *Occupational Status:: disabled Housing: house Household Members: spouse *Travel in the last 8 weeks: None Family Hx:: Heart Attack, Hyperlipidemia, Hypertension Review of Systems - Constitutional Denies body ache(s), Denies chills, Denies daytime sleepiness, Denies excessive sweating, Denies fatigue, Denies fever(s) - Eyes Denies blind spots, Denies blurry vision - *Cardiovascular Denies chest pain, Denies chest pain at rest, Denies chest pain with activity - *Respiratory Reports shortness of breath, Reports shortness of breath with activity, Denies change in phlegm color, Denies chest congestion, Denies cough - *Gastrointestinal Denies abdominal pain, Denies belching, Denies bloating, Denies change in bowel habits, Denies change in stools - *Musculoskeletal Denies abnormal walking, Denies joint pain, Denies decreased muscle mass - *Neurologic Denies dizziness, Denies localized weakness, Denies headache(s), Denies seizure-like activity Meds Home Medications Medication Instructions Recorded Confirmed Type Aspirin [Aspir 81] 81 mg PO DAILY 06/17/18 11/20/19 History Fluoxetine HCl 20 mg PO DAILY 06/17/18 11/20/19 History Levothyroxine Sodium 100 mcg PO DAILY 06/17/18 11/20/19 History [Levothyroxine 100mcg (0.1MG) Tab] Rosuvastatin Calcium 10 mg PO HS 06/17/18 11/20/19 History Torsemide 20 mg PO BID 06/17/18 11/20/19 History Ferrous Gluconate [Ferrous 324 mg PO BID 11/18/18 11/20/19 History Gluconate 324mg Tab] Tramadol HCl/Acetaminophen 1 tab PO Q6HP PRN 11/18/18 11/20/19 History [Ultracet 37.5/325mg tablet] metOLazone [metOLazone 2.5mg 2.5 mg PO DAILY 11/18/18 11/20/19 History Tablet] Amiodarone HCl [Amiodarone 100mg 200 mg PO DAILY 03/20/19 11/20/19 History Tab] Multivitamin [Multivitamins] 1 each PO DAILY 03/20/19 11/20/19 History Potassium Bicarbonate/Cit AC 75 meq PO TID 03/21/19 11/20/19 History [Klor-Con-Ef 25 Meq Tab Eff] Bifidobacterium Infantis [Align] 10.5 mg PO DAILY 11/19/19 11/20/19 History Allergies Allergy/AdvReac Type Severity Reaction Status Date / Time No Known Allergies Allergy Verified 11/20/19 03:38 Exam Vital signs and Labs for Last 24 Hours: Temp Pulse Resp BP Pulse Ox 97.7
--- NOTE | 2019-11-20 07:21 | P.CONPHA_ITS ---
[facility] VTE Monitoring - Patient Demographics Admission date: 11/19/19 Report Date: 11/20/19 Time: 07:21 Allergies/Adverse Reactions: Patient Allergies No Known Allergies Allergy (Verified 11/20/19 03:38) Height: 1.7 m Weight: 75.705 kg Patient Problems: Current Active Problems (This Medical Record has been edited. Action required.) Congestive heart failure (CHF) (Acute) Hiatal hernia (Acute) History of atrial fibrillation (Acute) - VTE Risk Labs: VTE Related Lab Results Hgb 14.2 g/dL (12.2-16.2) 11/20/19 06:12 Hct 44.7 % (37.0-47.0) 11/20/19 06:12 Plt Count 244 K/mm3 (142-424) 11/20/19 06:12 BUN 20 mg/dl (7-17) H 11/20/19 06:12 Creatinine 1.00 mg/dl (0.52-1.04) 11/20/19 06:12 Estimated Creat Clear 51 mL/min (50-200) 11/20/19 06:12 Was VTE Risk Assessment Performed: Yes VTE Score: 3 VTE Risk Level: Low Risk Clinical Trial Participant: No - Prophylaxis VTE Prophylaxis Ordered?: Yes Types of VTE Prophylaxis: TEDS Knee High
[2019-11-20 07:48] LABS: Hypochromasia 1+; Lymphocytes % 5 % (10-50); Monocytes % 1 % (2-9); Neutrophils % 94 % (42-76); Total Cells Counted 100
[2019-11-20 07:49] LABS: Platelet Estimate Normal
--- NOTE | 2019-11-20 08:00 | CA_ITS ---
APPROVED REPORT EXAM: Comprehensive 2D, Doppler, and color-flow Echocardiogram [place]wood Finisher: Ale Ovalle RDCS Ht: 5 ft 7 in Wt: 170lbs BSA: 1.89 BP: 110/70 mmHg Indications: VALVULAR DISEASE,AVR/MVR 07/2017, AF,CHF,HTN,HLP,SOA 2D Dimensions LVOT 1.86 cm (M/F) 1.5-2.5 M-Mode Dimensions RVDd 3.82 cm (0.9-2.6) LVDd 4.34 cm (3.5-5.7) LVDs 2.37 cm (3.5-5.7) IVSd 1.21 cm (0.6-1.1) PWd 1.04 cm (0.6-1.1) EF (Teich) 77.00% FS 45.40% EDV (Teich) 84.90 mL ESV (Teich) 19.50 mL LV Diastology E/A Ratio 1.43 Aortic Valve LVOT Max 94.00 (70-110 cm/s) LVOT VTI 14.99 cm Mitral Valve MV A Velocity 132.00 (40-130 cm/s) MV Mean Gr. 14.00 (<2mmHg) MV PHT 63.00 ms Left Ventricle Left atrium is moderately enlarged, left ventricle is normal size, mild concentric left ventricular hypertrophy, visually estimated ejection fraction 55%, there is no regional wall motion abnormality, there is flattening of the intraventricular septum during systole and diastole consistent with pressure and volume overload on right ventricle. Diastolic parameters are inconclusive. Right Ventricle Right atrium and right ventricle moderately enlarged with normal contractility. Aortic Valve There is bioprosthetic valve noted in the aortic position, the Doppler interrogation of the prosthetic valve is inadequate for assessment of the prosthetic valve functions. Mitral Valve There is bioprosthetic valve noted in the mitral position, the mean gradient across valve is 14 mmHg represents significant prosthetic valve stenosis, this is likely in severe range, there is no significant mitral regurgitation seen. Tricuspid Valve Tricuspid valve has thickened and calcified, there is severe tricuspid regurgitation, calculated right ventricular systolic pressure is 77 mmHg. Pulmonic Valve Pulmonic valve is poorly visualized. Great Vessels Aortic root is normal size. Pericardium No significant pericardial effusion noted. Conclusion 1. Technically difficult study. 2. Biatrial enlargement, normal left ventricular size, mild concentric left ventricular hypertrophy, visually estimated ejection fraction 55% with no regional wall motion abnormality, diastolic parameters are inconclusive. There is flattening of the intraventricular septum during systole and diastole consistent with pressure and volume overload on the right ventricle. 3. The bioprosthetic valve present in the aortic position, the Doppler is inadequate for assessment of the prosthetic valve. 4. 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 5. Severe tricuspid regurgitation, calculated right ventricular systolic pressure is 77 mmHg. 6. If clinically indicated transesophageal echocardiogram is recommended. Electronically signed by : Yoshi Fortune, 11/20/2019 15:58:17
--- NOTE | 2019-11-20 11:01 | HMH.PHAINT ---
home medicaiton reconciliation completed using list from pt's , Dr. Powers' office and pt's home pharmacy
--- NOTE | 2019-11-20 13:54 | PC.NURSE ---
DURING THIS RN FIRST ASSESSMENT, PATIENT BEGAN VOMITING. PATIENT CLEANED AND GOWN CHANGED. SHORTLY AFTER PATIENT BEGAN VOMITING A SECOND TIME. THIS RN PHONED DR. CHANTELL MD ORDERED 12.5 PHENEGRAN IV 1X ONLY. THIS RN ADMINISTERED. PATIENT REFUSED ALL PO MEDICATIONS THIS AM. THIS RN WENT TO PATIENT'S ROOM TO ADMINISTER PO POTASSIUM. PATIENT REFUSED AND ASKED FOR A DRINK. A CUP OF WATER WAS PROVIDED. PATIENT BEGAN CHOKING AND VOMITED MORE. THIS RN PLACED PATIENT ON NPO. PAGED MD FOR FURTHER ORDERS.
--- NOTE | 2019-11-20 15:46 | HMH.ACPN2 ---
Internal Medicine - PN: Subj *Date: 11/20/19 *Time: 15:46 Interval history: Patient's condition has deteriorated as the days progressed. Attempts to eat and drink resulted in episodes of vomiting and patient has experienced decreased O2 sats as the day is gone on despite increasing her use of supplemental oxygen. Patient reports she is short of breath. Exam Vital signs and Labs for Last 24 Hours: Temp Pulse Resp BP Pulse Ox 98.6 F 69 20 120/60 85 L 11/20/19 15:37 11/20/19 15:37 11/20/19 15:37 11/20/19 15:37 11/20/19 15:37 Laboratory Results - last 24 hr 11/19/19 21:14: WBC 10.3, RBC 4.58, Hgb 14.1, Hct 42.8, MCV 93.4, MCH 30.8, MCHC 33.0, RDW 15.9, Plt Count 276, MPV 8.0, Neut % (Auto) 81.1 H, Lymph % (Auto) 7.5 L, [place] % (Auto) 9.6 H, Eos % (Auto) 0.9, Baso % (Auto) 0.9, Neut # (Auto) 8.4 H, Lymph # (Auto) 0.8, [place] # (Auto) 1.0, Eos # (Auto) 0.1, Baso # (Auto) 0.1, ESR 16 11/19/19 21:14: Sodium 136, Potassium 5.1, Chloride 87 L, Carbon Dioxide 40 H, Anion Gap 14.1, BUN 20 H, Creatinine 1.00, Estimated Creat Clear 52, Estimated GFR 53 L, Est GFR ( Amer) 64, Glucose 110 H, Calcium 10.0, Total Bilirubin 2.6 H, AST 52 H, ALT 16, Alkaline Phosphatase 194 H, Troponin I 0.05 H, C-Reactive Protein 36.9 H, Total Protein 7.1, Albumin 3.7, Globulin 3.4 H, Albumin/Globulin Ratio 1.1 11/19/19 21:14: NT-Pro-B Natriuret Pep [id number] H 11/19/19 21:25: Specimen Source Left radial, O2 % 3 lpm, ABG pH 7.52 H, ABG pCO2 50.0 H, ABG pO2 71.6 L, ABG HCO3 40.1 H, ABG Total CO2 41.6 H, ABG O2 Saturation 95, ABG Base Excess 17.3 H, Tae Test Acceptable 11/20/19 00:24: Troponin I 0.05 H 11/20/19 03:15: Troponin I 0.05 H 11/20/19 06:12: WBC 7.8, RBC 4.69, Hgb 14.2, Hct 44.7, MCV 95.2, MCH 30.3, MCHC 31.8, RDW 15.9, Plt Count 244, MPV 7.8, Neut % (Auto) 93.6 H, Lymph % (Auto) 4.6 L, [place] % (Auto) 1.4 L, Eos % (Auto) 0.2, Baso % (Auto) 0.2, Neut # (Auto) 7.3, Lymph # (Auto) 0.4 L, [place] # (Auto) 0.1, Eos # (Auto) 0.0, Baso # (Auto) 0.0, Total Counted 100, Neutrophils % (Manual) 94 H, Lymphocytes % (Manual) 5 L, Monocytes % (Manual) 1 L, Platelet Estimate Normal, Hypochromasia 1+ 11/20/19 06:12: Sodium 139, Potassium 3.3 L D, Chloride 87 L, Carbon Dioxide 37 H, Anion Gap 18.3 H, BUN 20 H, Creatinine 1.00, Estimated Creat Clear 51, Estimated GFR 53 L, Est GFR ( Amer) 64, Glucose 174 H D, Calcium 10.1, Magnesium 2.2 I & O for Last 24 hours: Intake & Output 11/18/19 11/19/19 11/20/19 11/21/19 11:59 11:59 11:59 11:59 Intake Total 201 / 201 0 / 0 Output Total 300 / 300 Balance -99 / -99 0 / 0 Weight 166 lb 14.4 oz Microbiology Reports for the Last 24 Hours: Microbiology 11/19/19 23:20 Nasopharyngeal Coronavirus COVID-19 PCR - Final Narrative: In contrast to this morning the patient now has a congested cough with rhonchi in the right anterior chest and persistent crackles in the left anterior chest. - *Routine HEENT Exam Comments: Not repeated - *Routine Neck Exam Present: supple. Absent: lymphadenopathy Comments: Not repeated Assessment and Plan (1) Congestive heart failure (CHF) Current visit: Yes Status: Acute Qualifiers: Heart failure type: combined systolic and diastolic Heart failure chronicity: acute on chronic Qualified Code(s): I50.43 - Acute on chronic combined systolic (congestive) and diastolic (congestive) heart failure Category: Medical Code(s): I50.9 - Heart failure, unspecified (2) Recurrent left pleural effusion Current visit: Yes Status: Acute Category: Medical Code(s): J90 - Pleural effusion, not elsewhere classified (3) Chronic kidney disease, stage III (moderate) Current visit: No Status: Acute Category: Medical Code(s): N18.3 - Chronic kidney disease, stage 3 (moderate) - Assessment and plan all Dx Assessment and Plan for all problems:: I had a discussion with the patient's who is at bedside regarding her deteriorating status.
[2019-11-20 16:19] LABS: Microscopic, Urine URINE MICROSCOPIC (MICROSCOPIC)
[2019-11-20 16:21] LABS: Appearance,Urine CLEAR (Clear); Bilirubin,Urine Negative (Negative); Blood, Urine Negative (Negative); Color,Urine YELLOW (Yellow); Glucose,Urine (UA) Negative (Negative); Ketones,Urine Negative (Negative); Leukocyte Esterase,Urine Negative (Negative); Nitrate,Urine Negative (Negative); Protein,Urine Negative (Negative); Specific Gravity, Urine 1.015 (1.005-1.030)
[2019-11-20 17:45] LABS: Basophils % 0.1 % (0.1-2.0); Eosinophils # 0.3 K/mm3 (0.0-0.4); Eosinophils % 1.2 % (0.1-12.0); Hematocrit 42.3 % (37.0-47.0); Hemoglobin 13.7 g/dL (12.2-16.2); Lymphocytes # 0.4 K/mm3 (0.7-4.5); Lymphocytes % 1.8 % (10-50); Mean Corpuscular HGB Conc 32.3 g/dL (31.8-35.4); Mean Corpuscular Hemoglobin 30.6 pg (27.0-31.2); Mean Corpuscular Volume 94.8 fl (81-99); Mean Platelet Volume 7.6 fl (7.4-10.4); Monocytes # 0.8 K/mm3 (0.1-1.0); Neutrophils # 18.5 K/mm3 (1.8-7.8); Neutrophils % 92.8 % (37.0-80.0); Platelet Count 237 K/mm3 (142-424); Red Blood Count 4.46 M/mm3 (4.20-5.40); Red Cell Distribution Width 15.7 % (11.5-17.5)
[2019-11-20 17:47] LABS: MANUAL DIFFERENTIAL MANUAL DIFFERENTIAL (MANUAL DIFF)
[2019-11-20 17:48] LABS: Chloride 86 mmol/L (98-107)
[2019-11-20 17:49] LABS: Sodium 140 mmol/L (136-145)
[2019-11-20 17:52] LABS: Blood Urea Nitrogen 22 mg/dl (7-17); Calcium 9.7 mg/dl (8.4-10.2); Creatinine Clearance Estimated 51 mL/min (50-200); Estimated Glomerular Filt Rate 53 ml/min (>60); GFR (African American) 64 ML/MIN (>60); Glucose 135 mg/dl (74-100)
[2019-11-20 17:57] LABS: Lymphocytes % 5 % (10-50); Monocytes % 9 % (2-9); Neutrophils % 86 % (42-76); Platelet Estimate Normal; RBC Morphology Normal; Total Cells Counted 100
[2019-11-20 18:02] LABS: ABG Base Excess 17.2 mmol/L (-2.4-2.3); ABG HCO3 42.1 mmhg (22.0-26.0); ABG Oxygen Saturation 90 % (90-100); ABG PH 7.39 mmol/L (7.35-7.45); ABG PO2 63.8 mmhg (80-100); ABG TCO2 44.3 mmhg (23-27)
[2019-11-20 18:02] LABS: Carbon Dioxide 41 mmol/L (22.0-30.0)
[2019-11-20 18:06] LABS: Allen's Test Patient Unable; Oxygen 100% NRB %; Source Left Radial
[2019-11-20 18:07] LABS: ABG PCO2 70.5 mmhg (35.0-45.0)
--- NOTE | 2019-11-20 19:39 | PC.NURSE ---
DURING START OF THIS RN SHIFT PATIENT WAS A&OX 2, LUNGS: VARINDER BASES DIMINISHED. PULSES EQUAL. +1 PITTING EDEMA NOTED IN BLE. DURING 1ST ASSESSMENT, PATIENT VOMITED. THIS RN NOTIFIED DR. ABDUL, PHENEGRAN 12.5 IV 1X ONLY WAS ORDERED. THIS RN DID NOT ADMINISTER PO MEDICATIONS AT THIS TIME. AT 1300 THIS RN WENT INTO PATIENT ROOM TO ADMINISTER NEXT DOSE OF POTASSIUM. PATIENT REFUSED AND HAD ASKED FOR A DRINK OF WATER. AFTER SIPPING WATER, PATIENT BEGAN CHOCKING AND VOMITING. THIS RN PLACED PATIENT ON NPO AND NOTIFIED MD. ORDERS FOR SWALLOW EVALUATION. PATIENT RESPONDED TO NAME, OPENED EYES WHEN SPOKE TO BUT WOULD GO BACK TO SLEEP. THIS RN NOTIFIED DR. ABDUL OF 02 SATS DROPPING TO 85% WHILE ON 5L NC. RESPIRATORY ALSO NOTIFIED. RT CAME AND ASSESSED PATIENT, PLACED HER ON A VENTI MASK. PATIENT STARTED TO DE SAT AND THIS RN NOTIFIED RESPIRATORY. THIS RN ALSO NOTIFIED MD THAT PATIENT HAD STARTED TO DETERIORATE. SHORTLY AFTER NOTIFICATION, MD WAS AT BEDSIDE. RT ALSO AT BEDSIDE. PATIENT WAS PLACED ON A [id number], MD ORDER ELMORE PLACEMENT. PATIENT TOLERATED PROCEDURE WELL. AFTER PLACEMENT, PATIENT BEGAN VOMITING. THIS RN NOTIFIED MD OF PATIENT VOMITING BROWN SUBSTANCE AND ABDOMEN WAS SLIGHTLY DISTENDED. MD ORDER CBC AND BMP. RESPIRATORY PHONED THIS RN IN REGARDS TO PATIENT REMAINING ON NON REBREATHER. PER MD PATIENT WAS TO REMAIN ON NON RE-BREATHER TO KEEP SATS >90 AND ORDERED AN ABG. RESULT WERE REPORTED TO MD. MD ORDERED FOR PATIENT TO BE PLACED ON VAPOTHERM AND IF LEVEL OF ALERTNESS DOES NOT IMPROVE POSSIBLE BIPAP. THIS RN REPORTED ORDERS TO RT. PATIENT IS NOW ON BIPAP AT THIS TIME. NO OTHER NEEDS AT THIS TIME.
[2019-11-21] VITALS (13 sets, daily range): BP systolic 131–165; BP diastolic 65–82; PULSE 60–80; RESP 16–25; TEMP 36.6–36.9; O2SAT 90–97; BMI 26.3
--- NOTE | 2019-11-21 02:07 | PC.NURSE ---
PT IS ALERT TO SELF AT THIS TIME. PT WAS PUT ON BIPAP AT BEGINNING OF THIS SHIFT. PT TOLERATING BIPAP VERY WELL. PT O2 SATS HAVE STAYED IN THE UPPER 90S. PT HAS BECOME MORE ALERT T/O SHIFT. PT HAS NOT C/O OF ANY PAIN OR SOA THUS FAR. PT FAMILY AT BEDSIDE T/O SHIFT. PT REMAINS NPO AT THIS TIME. ORAL CAR PROVIDED BY STAFF THIS SHIFT. PT SITUATED IN BED MULTIPLE TIMES FOR COMFORT. F/C PRESENT DRAINING DARK YELLOW URINE. PT RECEIVING IV POTASSIUM AND ABX THIS SHIFT. TOLERATING WELL. PT BEING MONITORED ON TELE & CONTINUOUS PULSE OX T/O SHIFT. PT ON 1200ML FLUID RESTRICTION. NO OTHER C/O THUS FAR, PT IS RESTING COMFORTABLY WEARING BIPAP AT THIS TIME. VSS WILL CONTINUE TO MONITOR FAMILY ALLOWS.
--- NOTE | 2019-11-21 02:34 | PC.NURSE ---
MOUTH SWABS PROVIDED TO PT DURING SMALL BREAK FROM BIPAP AT THIS TIME. PT TOLERATED WELL. PT BACK ON BIPAP RESTING IN BED.
--- NOTE | 2019-11-21 03:12 | PC.NURSE ---
PT HSA C/O X2 OF BEING SOA. ADMINISTERED PRN MORPHINE FOR SOA AT THIS TIME. WILL CONTINUE TO MONITOR.
[2019-11-21 06:34] LABS: ABG Base Excess 21.3 mmol/L (-2.4-2.3); ABG HCO3 44.6 mmhg (22.0-26.0); ABG Oxygen Saturation 99 % (90-100); ABG PH 7.49 mmol/L (7.35-7.45); ABG PO2 176.8 mmhg (80-100); ABG TCO2 46.5 mmhg (23-27)
[2019-11-21 06:36] LABS: Allen's Test Acceptable; Pressure Support 9; Source Left Radial; Vent Rate 16
[2019-11-21 06:37] LABS: Chloride 89 mmol/L (98-107); Sodium 141 mmol/L (136-145)
[2019-11-21 06:38] LABS: ABG PCO2 59.9 mmhg (35.0-45.0)
[2019-11-21 06:40] LABS: Blood Urea Nitrogen 26 mg/dl (7-17); Calcium 9.6 mg/dl (8.4-10.2); Creatinine Clearance Estimated 42 mL/min (50-200); Estimated Glomerular Filt Rate 43 ml/min (>60); GFR (African American) 52 ML/MIN (>60); Glucose 121 mg/dl (74-100)
[2019-11-21 06:50] LABS: Carbon Dioxide 42 mmol/L (22.0-30.0)
[2019-11-21 06:54] LABS: Basophils % 0.2 % (0.1-2.0); Eosinophils % 0.2 % (0.1-12.0); Hematocrit 42.1 % (37.0-47.0); Hemoglobin 13.7 g/dL (12.2-16.2); Lymphocytes # 0.4 K/mm3 (0.7-4.5); Lymphocytes % 2.4 % (10-50); Mean Corpuscular HGB Conc 32.6 g/dL (31.8-35.4); Mean Corpuscular Hemoglobin 30.4 pg (27.0-31.2); Mean Corpuscular Volume 93.2 fl (81-99); Mean Platelet Volume 8.3 fl (7.4-10.4); Monocytes # 0.8 K/mm3 (0.1-1.0); Monocytes % 4.4 % (1.7-9.3); Neutrophils # 16.3 K/mm3 (1.8-7.8); Neutrophils % 92.8 % (37.0-80.0); Platelet Count 267 K/mm3 (142-424); Red Blood Count 4.51 M/mm3 (4.20-5.40); Red Cell Distribution Width 15.9 % (11.5-17.5); White Blood Count 17.6 K/mm3 (4.8-10.8)
[2019-11-21 07:00] LABS: MANUAL DIFFERENTIAL MANUAL DIFFERENTIAL (MANUAL DIFF)
--- NOTE | 2019-11-21 07:10 | HMH.ACPN2 ---
Internal Medicine - PN: Subj *Date: 11/21/19 *Time: 07:10 Interval history: Overnight patient was placed on BiPAP. This morning she continues to complain of shortness of breath although family at bedside reports patient seems improved compared to yesterday evening. She seems to be struggling less to breathe with use of the BiPAP. Patient was hypercapnic on an ABG yesterday evening. Patient denies pain. Shortness of breath is treated with morphine which helps relax her. Exam Vital signs and Labs for Last 24 Hours: Temp Pulse Resp BP Pulse Ox 97.6 F 70 26 H 137/70 98 11/20/19 19:59 11/21/19 04:00 11/20/19 19:59 11/20/19 19:59 11/20/19 19:59 Laboratory Results - last 24 hr 11/20/19 06:12: Total Counted 100, Neutrophils % (Manual) 94 H, Lymphocytes % (Manual) 5 L, Monocytes % (Manual) 1 L, Platelet Estimate Normal, Hypochromasia 1+ 11/20/19 15:50: Urine Color Yellow, Urine Appearance Clear, Urine pH 8.0, Ur Specific [place] 1.015, Urine Protein Negative, Urine Glucose (UA) Negative, Urine Ketones Negative, Urine Blood Negative, Urine Nitrate Negative, Urine Bilirubin Negative, Urine Urobilinogen 1.0, Ur Leukocyte Esterase Negative, Urine WBC 3-5, Ur Squamous Epith Cells 3-5 11/20/19 17:39: WBC 20.0 H D, RBC 4.46, Hgb 13.7, Hct 42.3, MCV 94.8, MCH 30.6, MCHC 32.3, RDW 15.7, Plt Count 237, MPV 7.6, Neut % (Auto) 92.8 H, Lymph % (Auto) 1.8 L, [place] % (Auto) 4.0, Eos % (Auto) 1.2, Baso % (Auto) 0.1, Neut # (Auto) 18.5 H, Lymph # (Auto) 0.4 L, [place] # (Auto) 0.8, Eos # (Auto) 0.3, Baso # (Auto) 0.0, Total Counted 100, Neutrophils % (Manual) 86 H, Lymphocytes % (Manual) 5 L, Monocytes % (Manual) 9, Platelet Estimate Normal, RBC Morphology Normal 11/20/19 17:39: Sodium 140, Potassium 3.0 L, Chloride 86 L, Carbon Dioxide 41 H*, Anion Gap 16.0 H, BUN 22 H, Creatinine 1.00, Estimated Creat Clear 51, Estimated GFR 53 L, Est GFR ( Amer) 64, Glucose 135 H D, Calcium 9.7 11/20/19 17:47: Specimen Source Left radial, O2 % 100% nrb, ABG pH 7.39, ABG pCO2 70.5 H, ABG pO2 63.8 L, ABG HCO3 42.1 H, ABG Total CO2 44.3 H, ABG O2 Saturation 90, ABG Base Excess 17.2 H, Tae Test Patient unable 11/21/19 06:00: Specimen Source Left radial, O2 % 55%, ABG pH 7.49 H, ABG pCO2 59.9 H, ABG pO2 176.8 H, ABG HCO3 44.6 H, ABG Total CO2 46.5 H, ABG O2 Saturation 99, ABG Base Excess 21.3 H, Tae Test Acceptable, Vent Rate 16, Tidal Volume bipap 15/6 11/21/19 06:10: Sodium 141, Potassium 4.0 D, Chloride 89 L, Carbon Dioxide 42 H*, Anion Gap 14.0, BUN 26 H, Creatinine 1.20 H, Estimated Creat Clear 42, Estimated GFR 43 L, Est GFR ( Amer) 52 L, Glucose 121 H, Calcium 9.6 11/21/19 06:10: WBC 17.6 H, RBC 4.51, Hgb 13.7, Hct 42.1, MCV 93.2, MCH 30.4, MCHC 32.6, RDW 15.9, Plt Count 267, MPV 8.3, Neut % (Auto) 92.8 H, Lymph % (Auto) 2.4 L, [place] % (Auto) 4.4, Eos % (Auto) 0.2, Baso % (Auto) 0.2, Neut # (Auto) 16.3 H, Lymph # (Auto) 0.4 L, [place] # (Auto) 0.8, Eos # (Auto) 0.0, Baso # (Auto) 0.0 I & O for Last 24 hours: Intake & Output 11/18/19 11/19/19 11/20/1920 11:59 11:59 11:59 11:59 Intake Total 201 / 201 589 / 589 Output Total 300 / 300 800 / 800 Balance -99 / -99 -211 / -211 Weight 166 lb 14.4 oz Narrative: Patient appears comfortable in bed. Breathing is shallow and irregular although when asked patient can take deep inspirations. She answers questions appropriately. BiPAP is in place on her face. Lungs have fair aeration when patient has good inspiratory effort. Right lung base is clear. Left lung base is distant consistent with patient's pleural effusion. Anteriorly crackles that were present yesterday have resolved. Rhonchi have resolved. Patient does have a loud systolic murmur from the mitral stenosis identified on repeat echocardiogram. 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
[2019-11-21 07:47] LABS: Lymphocytes % 2 % (10-50); Monocytes % 5 % (2-9); Neutrophils % 93 % (42-76); Total Cells Counted 100
[2019-11-21 07:48] LABS: Platelet Estimate Normal
[2019-11-21 07:49] LABS: RBC Morphology Normal
--- NOTE | 2019-11-21 08:11 | DIET.NUTRFU ---
Nutrition consult/assessment completed. Pt's family educated about fluid and sodium restriction. Let family know I am available for any further concerns/questions.
--- NOTE | 2019-11-21 09:56 | PC.NURSE ---
PT AND FAMILY REFUSED 0900 MEDICATIONS D/T NAUSEA AND ONE EPISODE OF VOMITING. ZOFRAN ADMINISTERED, EFFECTIVE. FAMILY CONTINUED TO REFUSE 0900 SCHEDULED MEDICATIONS EVEN THOUGH NAUSEA/VOMITING HAS SUBSIDED. BED AND GOWN CHANGED AND ORAL CARE PROVIDED X4 THIS SHIFT. PT TRANSITIONED TO VAPOTHERM TO PERFORM SWALLOW EVALUATION BY SPEECH. O2 SATURATION REMAINS IN MID 90'S WITH NO COMPLAINTS OR S/S OF SOA/SOB. WILL CONTINUE TO MONITOR
--- NOTE | 2019-11-21 13:52 | SW/DCPLANNER ---
PATIENT PRESENTED INTO THE ACUTE HOS[facility]ITAL 11/19 WITH PROGRESSIVE SHORTNESS OF BREATH, INCREASED SWELLING OF LOWER EXTREMITIES AND ACUTE CONGESTIVE HEART FAILURE...PRIOR TO THIS ADMISSION, SHE WAS AT HOME WITH AND HAD BEEN MANAGING AT HOME. CM WILL FOLLOW [facility] THROUGH HER STAY AND ASSIST WITH ANY PLANS FOR REHAB, SKILLED CARE AT TIME PATIENT IS READY FOR A DISPOSITION...
--- NOTE | 2019-11-21 18:55 | PC.NURSE ---
ALERT AND ORIENTED X3. PT HAS SLEPT AT INTERVALS ALL SHIFT. FAMILY AT BEDSIDE. LUNGS REMAIN DIMINISHED THROUGHOUT. O2 SATURATION IN LOW TO MID 90'S ON VAPOTHERM. PT FREQUENTLY COMPLAINS OF SOB/SOA, O2 SATURATION REMAINS STABLE. MORPHINE ADMINISTERED PER MAR FOR SOA, EFFECTIVE. PT C/O NAUSEA AND ONE EPISODE OF VOMITING. ZOFRAN ADMINISTERED X2 PER MAR, EFFECTIVE. ABDOMEN IS SOFT AND NON-TENDER WITH ACTIVE BS IN ALL QUADS. NO BM THIS SHIFT. ELMORE CATHETER IS SECURE, PATENT,AN DRAINING DARK YELLOW URINE. SWALLOW EVALUATION ATTEMPTED TODAY, PT UNABLE TO PARTICIPATE IN COMPLETE EVALUATION D/T NAUSEA. SPEECH THERAPY ORDERED NPO, SMALL SIPS OF WATER WITH NO STRAW AND WILL RE-EVALUATE TOMORROW. ORAL CARE PROVIDED HOURLY AND PT TURNED Q2. VSS. NO DISTRESS NOTED. EDUCATION PROVIDED TO FAMILY ON THE DIFFERENCE BETWEEN VAPOTHERM AND BIPAP. FAMILY VERBALIZED UNDERSTANDING. SAFETY MEASURES IN PLACE, WILL CONTINUE TO MONITOR
[2019-11-22] VITALS (15 sets, daily range): BP systolic 118–136; BP diastolic 54–74; PULSE 60–92; RESP 16–28; TEMP 36.5–37.1; O2SAT 90–96; BMI 26.3
--- NOTE | 2019-11-22 04:33 | PC.NURSE ---
]Pt A&OX4. lungs diminished bases with anterior crackles. Pt on vapotherm 27 PRM with 02 in s. pt c/o of SOA medicated per MAY. F/C draining yellow urine. pt has slept in intervals throughout shift. family @ bedside. Pt has been turned per Pt's request. Oral care perfomed Q2. Pt unable to take PO meds
[2019-11-22 07:28] LABS: Basophils % 0.3 % (0.1-2.0); Eosinophils % 0.2 % (0.1-12.0); Hematocrit 42.1 % (37.0-47.0); Hemoglobin 13.4 g/dL (12.2-16.2); Lymphocytes # 0.4 K/mm3 (0.7-4.5); Lymphocytes % 3.3 % (10-50); Mean Corpuscular Hemoglobin 30.5 pg (27.0-31.2); Mean Corpuscular Volume 95.3 fl (81-99); Mean Platelet Volume 8.5 fl (7.4-10.4); Monocytes # 0.8 K/mm3 (0.1-1.0); Monocytes % 6.2 % (1.7-9.3); Neutrophils # 11.5 K/mm3 (1.8-7.8); Platelet Count 222 K/mm3 (142-424); Red Blood Count 4.41 M/mm3 (4.20-5.40); Red Cell Distribution Width 15.6 % (11.5-17.5); White Blood Count 12.8 K/mm3 (4.8-10.8)
--- NOTE | 2019-11-22 07:28 | PC.NURSE ---
~ 0530 Pt desat to 79% on Vapotherm. Pt assessed and was provided oral care and suctioning and attempted to get pt to take deep breaths through nose. SaO2 would not increase. Respiratory notified and reported to the pt's room immediately to reapply the BiPap. Once applied, pts SaO2 increased quickly to 93%. Pt's daughter at bedside. Will continue to monitor pts condition.
[2019-11-22 07:32] LABS: Chloride 91 mmol/L (98-107)
[2019-11-22 07:33] LABS: MANUAL DIFFERENTIAL MANUAL DIFFERENTIAL (MANUAL DIFF); Sodium 144 mmol/L (136-145)
--- NOTE | 2019-11-22 07:34 | PC.NURSE ---
~ 0645, pts family called out that pt was reporting that she could not breathe . Pt assessed, found to be coughing and gagging. BiPap mask removed and suction preformed and copious amount of tachy, tenacious, and dark link/brown substance removed with suction. Zofran and Morphine administered for nausea and respiratory distress. On reassessment pt was resting quietly. SaO2 94% on Bipap post treatments.
[2019-11-22 07:36] LABS: Blood Urea Nitrogen 32 mg/dl (7-17); Calcium 9.4 mg/dl (8.4-10.2); Creatinine Clearance Estimated 43 mL/min (50-200); Estimated Glomerular Filt Rate 43 ml/min (>60); GFR (African American) 52 ML/MIN (>60); Glucose 85 mg/dl (74-100)
[2019-11-22 07:47] LABS: Anion Gap 13.6 mEq/L (5-15)
[2019-11-22 07:48] LABS: Carbon Dioxide 42 mmol/L (22.0-30.0); Potassium 2.6 mmoL/L (3.5-5.1)
--- NOTE | 2019-11-22 07:56 | HMH.ACPN2 ---
Internal Medicine - PN: Subj *Date: 11/22/19 *Time: 07:56 Interval history: Patient did well most of the day yesterday on Vapotherm but then early this morning have an episode of coughing and choking with productive brown sputum and questionable emesis. Patient was placed back on BiPAP. Patient does not feel like her shortness of breath is improving Exam Vital signs and Labs for Last 24 Hours: Temp Pulse Resp BP Pulse Ox 98.8 F 81 19 136/71 90 L 11/22/19 04:00 11/22/19 04:00 11/22/19 04:00 11/22/19 04:00 11/22/19 05:42 Laboratory Results - last 24 hr 11/22/19 06:40: Sodium 144, Potassium 2.6 L* D, Chloride 91 L, Carbon Dioxide 42 H*, Anion Gap 13.6, BUN 32 H, Creatinine 1.20 H, Estimated Creat Clear 43, Estimated GFR 43 L, Est GFR ( Amer) 52 L, Glucose 85, Calcium 9.4 11/22/19 06:40: WBC 12.8 H D, RBC 4.41, Hgb 13.4, Hct 42.1, MCV 95.3, MCH 30.5, MCHC 32.0, RDW 15.6, Plt Count 222, MPV 8.5, Neut % (Auto) 90.0 H, Lymph % (Auto) 3.3 L, [place] % (Auto) 6.2, Eos % (Auto) 0.2, Baso % (Auto) 0.3, Neut # (Auto) 11.5 H, Lymph # (Auto) 0.4 L, [place] # (Auto) 0.8, Eos # (Auto) 0.0, Baso # (Auto) 0.0 I & O for Last 24 hours: Intake & Output 11/19/19 11/20/19 11/21/19 11/22/19 11:59 11:59 11:59 11:59 Intake Total 201 / 201 589 / 589 850 / 850 Output Total 300 / 300 1150 / 1150 850 / 850 Balance -99 / -99 -561 / -561 0 / 0 Weight 166 lb 14.4 oz 167 lb 8.821 oz 167 lb 14.888 oz Narrative: Patient is resting with BiPAP on. She will open her eyes and respond to questions. Oropharynx is dry. Lungs right basilar crackles as well as anterior crackles. The left lung is diminished with faint crackles. Assessment and Plan (1) Congestive heart failure (CHF) Current visit: Yes Status: Acute Qualifiers: Heart failure type: combined systolic and diastolic Heart failure chronicity: acute on chronic Qualified Code(s): I50.43 - Acute on chronic combined systolic (congestive) and diastolic (congestive) heart failure Category: Medical Code(s): I50.9 - Heart failure, unspecified (2) Recurrent left pleural effusion Current visit: Yes Status: Acute Category: Medical Code(s): J90 - Pleural effusion, not elsewhere classified (3) Chronic kidney disease, stage III (moderate) Current visit: No Status: Acute Category: Medical Code(s): N18.3 - Chronic kidney disease, stage 3 (moderate) (4) Status post mitral valve replacement with bioprosthetic valve Current visit: Yes Status: Acute Category: Surgical Code(s): Z95.3 - Presence of xenogenic heart valve (5) Status post aortic valve replacement with bioprosthetic valve Current visit: Yes Status: Acute Category: Surgical Code(s): Z95.3 - Presence of xenogenic heart valve (6) Mitral valve stenosis Current visit: Yes Status: Acute Category: Medical Code(s): I05.0 - Rheumatic mitral stenosis (7) Aspiration into airway Current visit: Yes Status: Acute Category: Medical Code(s): T17.908A - Unspecified foreign body in respiratory tract, part unspecified causing other injury, initial encounter (8) Aspiration pneumonia Current visit: Yes Status: Acute Category: Medical Code(s): J69.0 - Pneumonitis due to inhalation of food and vomit (9) Hypokalemia Current visit: Yes Status: Acute Category: Medical Code(s): E87.6 - Hypokalemia - Assessment and plan all Dx Assessment and Plan for all problems:: 1. Continue IV Unasyn. Vapotherm or BiPAP for oxygen support. Patient's prognosis is poor 2. Change Lasix to daily due to poor p.o. intake and hypokalemia 3. Patient will receive 4 runs of potassium chloride 20 mEq each
[2019-11-22 08:33] LABS: Lymphocytes % 8 % (10-50); Monocytes % 4 % (2-9); Neutrophils % 88 % (42-76); Platelet Estimate Normal; RBC Morphology Normal; Total Cells Counted 100
--- NOTE | 2019-11-22 18:24 | PC.NURSE ---
ALERT AND ORIENTED X3. PT HAS SLEPT FOR MOST OF SHIFT, ONLY AWAKE FOR A FEW MINUTES AT A TIME. SPEECH THERAPIST CALLED 3X TO INQUIRE ABOUT PT'S CONDITION IN ORDER TO FINISH EVALUATION. PT HAS BEEN UNABLE TO PARTICIPATE WITH SWALLOW EVALUATION D/T EXTREME GENERALIZED FATIGUE,WEAKNESS, AND NAUSEA. SPEECH THERAPIST WILL ATTEMPT TO COMPLETE SWALLOW EVALUATION TOMORROW. PT REMAINS NPO WITH SIPS OF WATER WITH NO STRAW. LUNGS REMAIN DIMINISHED WITH CRACKLES IN THE BASES. FAMILY REQUESTED TO REMOVE BIPAP THIS AFTERNOON AND PLACE ON VAPOTHERM IN ORDER TO VISIT. O2 SATURATION ON VAPOTHERM 88-90%. PT COMPLAINED OF SOB WITH BIPAP AND VAPOTHERM, MORPHINE ADMINISTERED PER MAR TO TREAT AIR HUNGER, EFFECTIVE. ORAL CARE AND TURNED Q2. ABDOMEN IS SOFT, ROUND, AND NON-TENDER WITH HYPOACTIVE BS IN ALL QUADS. NO BM. ELMORE CATHETER IS SECURE, PATENT, AND DRAINING CLEAR YELLOW URINE. IV IS SECURE, PATENT, AND SL. IV IS DUE TO BE CHANGED TODAY BUT FAMILY REFUSED AND WOULD PREFER TO WAIT. EDUCATION PROVIDED TO FAMILY OF IMPORTANCE OF MAINTAINING IV SITE, THEY VERBALIZED UNDERSTANDING. VSS. SAFETY MEASURES IN PLACE, WILL CONTINUE TO MONITOR.
--- NOTE | 2019-11-22 22:47 | XR_ITS ---
PROCEDURE: XR CHEST PORTABLE Referring Doctor: Bean Mendez Patient Age:84Y CLINICAL HISTORY: sob. Nonsmoker Deterioration past 24 hours patient secretions causing increased choking COMPARISON: CR XR CHEST 2V from 03/20/2019 CR XR CHEST PORTABLE from 04/24/[address] ABDOMEN PELVIS WO CON from 10/15/2019 CR XR CHEST 2V from 11/19/2019 FINDINGS: AP portable CXR performed today with comparison to multiple prior chest studies most recent 11/19/2019. A prior CT abdomen from 10/15/2019 also helpful. Prior studies show abundant chronic lung changes with longstanding densities towards lung bases including the large right hiatal hernia the the the Today's again show progression findings bilaterally, with prominent bibasilar densities and airspace disease-the most the pronounced at right lung and right lung base. Bibasilar pleural effusions persist-and appears to increased on the right, and possibly decreased slightly on the left since 11/19/2019. Right chest-progression of density most pronounced inferiorly towards right lung base but also with with additional airspace disease suggested at the right perihilar region and right mid lung when compared back to 11/19/2019 the Large hiatal hernia projected over the right lung base along with the elevation right hemidiaphragm and to the density at right base.. Suggestion of vague air bronchograms at the medial infrahilar region and right base the Left lung-slight additional infiltrate also suggested at the left perihilar region towards left base on today's study the. Left pleural effusion again suggested no larger and actually appears slightly smaller than on 11/19/2019 The heart appears enlarged but margins partially obscured by the above features. Right richard accentuated and partially obscured by the additional suspect airspace disease in this region.. Previous median sternotomy and valve replacement is noted. pvc monitor leads in place.. Chest wall unremarkable otherwise IMPRESSION: Appears to be progression of airspace disease and findings bilaterally, particular in the right lung compared to 11/19/2019 Suggestion additional infiltrate right midlung, right perihilar region. Suspect subtle air bronchograms right infrahilar region and medial right lung base on today's P CXR Longstanding large right hiatal hernia again also contributes to density at right lung base. Likely small right pleural effusion now present, with small left pleural effusion again noted Dictated by: Beau Murdock MD 11/23/2019 09:25 Beau Murdock MD in [facility] 11/23/2019 09:25
[2019-11-23] VITALS (7 sets, daily range): BP systolic 123; BP diastolic 82; PULSE 70–104; RESP 17–36; TEMP 36.6; O2SAT 90–94
--- NOTE | 2019-11-23 06:31 | PC.NURSE ---
First half of shift, pt was very restless, agitated, exhibits s/sx of air hunger with continuous secretions. Suctioning performed to clear thick white secretions from lower throat. After pt had suctioning and received Robinul, pt became more calm with less respiratory exertion noted. Family has remained at bedside throughout shift. Pt has slept for the last 1/3 of shift. Morphine is now much more effective in alleviating air hunger since secretions have cleared.
--- NOTE | 2019-11-23 07:36 | HMH.ACPN2 ---
Internal Medicine - PN: Subj *Date: 11/23/19 *Time: 07:37 Interval history: Patient has deteriorated over the last 24 hours. Despite use of BiPAP she has desaturated into the 80s. Patient secretions have caused choking and she was given Robinul. Family is at bedside this morning. Exam Vital signs and Labs for Last 24 Hours: Temp Pulse Resp BP Pulse Ox 97.9 F 70 24 123/82 94 L 11/23/19 03:50 11/23/19 04:00 11/23/19 07:05 11/23/19 03:50 11/23/19 03:50 Laboratory Results - last 24 hr 11/22/19 06:40: Sodium 144, Potassium 2.6 L* D, Chloride 91 L, Carbon Dioxide 42 H*, Anion Gap 13.6, BUN 32 H, Creatinine 1.20 H, Estimated Creat Clear 43, Estimated GFR 43 L, Est GFR ( Amer) 52 L, Glucose 85, Calcium 9.4 11/22/19 06:40: Total Counted 100, Neutrophils % (Manual) 88 H, Lymphocytes % (Manual) 8 L, Monocytes % (Manual) 4, Platelet Estimate Normal, RBC Morphology Normal I & O for Last 24 hours: Intake & Output 11/20/19 11/21/19 11/22/19 11/23/19 11:59 11:59 11:59 11:59 Intake Total 201 / 201 589 / 589 900 / 900 712 / 712 Output Total 300 / 300 1150 / 1150 850 / 850 1200 / 1200 Balance -99 / -99 -561 / -561 50 / 50 -488 / -488 Weight 166 lb 14.4 oz 167 lb 8.821 oz 167 lb 14.888 oz Narrative: Patient shows increased work of breathing. Lung exam has worsened with rales heard throughout the anterior lung on the right and left along with diminished breath sounds posteriorly with rales posteriorly on the right and faint rales on the left. Heart has a regular rate and rhythm. Extremities are warm to the touch. Patient has 1+ edema at the ankles Assessment and Plan (1) Congestive heart failure (CHF) Current visit: Yes Status: Acute Qualifiers: Heart failure type: combined systolic and diastolic Heart failure chronicity: acute on chronic Qualified Code(s): I50.43 - Acute on chronic combined systolic (congestive) and diastolic (congestive) heart failure Category: Medical Code(s): I50.9 - Heart failure, unspecified (2) Recurrent left pleural effusion Current visit: Yes Status: Acute Category: Medical Code(s): J90 - Pleural effusion, not elsewhere classified (3) Chronic kidney disease, stage III (moderate) Current visit: No Status: Acute Category: Medical Code(s): N18.3 - Chronic kidney disease, stage 3 (moderate) (4) Status post mitral valve replacement with bioprosthetic valve Current visit: Yes Status: Acute Category: Surgical Code(s): Z95.3 - Presence of xenogenic heart valve (5) Status post aortic valve replacement with bioprosthetic valve Current visit: Yes Status: Acute Category: Surgical Code(s): Z95.3 - Presence of xenogenic heart valve (6) Mitral valve stenosis Current visit: Yes Status: Acute Category: Medical Code(s): I05.0 - Rheumatic mitral stenosis (7) Aspiration into airway Current visit: Yes Status: Acute Category: Medical Code(s): T17.908A - Unspecified foreign body in respiratory tract, part unspecified causing other injury, initial encounter (8) Aspiration pneumonia Current visit: Yes Status: Acute Category: Medical Code(s): J69.0 - Pneumonitis due to inhalation of food and vomit (9) Hypokalemia Current visit: Yes Status: Acute Category: Medical Code(s): E87.6 - Hypokalemia - Assessment and plan all Dx Assessment and Plan for all problems:: I do not believe the patient will recover from this illness. Discussion was had with family at bedside as well as the patient. Patient was informed of her prognosis and she is agreed to palliative care. Patient will be given IV morphine for pain or air hunger. Ativan has been ordered for agitation. Patient to be weaned to nasal cannula and is expected to pass
[2019-11-23 08:03] LABS: Basophils % 0.1 % (0.1-2.0); Eosinophils % 0.2 % (0.1-12.0); Hematocrit 43.1 % (37.0-47.0); Hemoglobin 13.6 g/dL (12.2-16.2); Lymphocytes # 0.4 K/mm3 (0.7-4.5); Lymphocytes % 2.8 % (10-50); Mean Corpuscular HGB Conc 31.4 g/dL (31.8-35.4); Mean Corpuscular Hemoglobin 30.9 pg (27.0-31.2); Mean Corpuscular Volume 98.3 fl (81-99); Mean Platelet Volume 8.4 fl (7.4-10.4); Monocytes # 0.5 K/mm3 (0.1-1.0); Monocytes % 3.4 % (1.7-9.3); Neutrophils # 14.1 K/mm3 (1.8-7.8); Neutrophils % 93.5 % (37.0-80.0); Platelet Count 203 K/mm3 (142-424); Red Blood Count 4.39 M/mm3 (4.20-5.40); Red Cell Distribution Width 15.7 % (11.5-17.5)
[2019-11-23 08:07] LABS: MANUAL DIFFERENTIAL MANUAL DIFFERENTIAL (MANUAL DIFF)
[2019-11-23 08:11] LABS: Chloride 94 mmol/L (98-107); Potassium 3.2 mmoL/L (3.5-5.1); Sodium 147 mmol/L (136-145)
[2019-11-23 08:14] LABS: Blood Urea Nitrogen 42 mg/dl (7-17); Creatinine Clearance Estimated 30 mL/min (50-200); Estimated Glomerular Filt Rate 29 ml/min (>60); GFR (African American) 35 ML/MIN (>60)
[2019-11-23 08:15] LABS: Calcium 9.6 mg/dl (8.4-10.2); Glucose 66 mg/dl (74-100)
[2019-11-23 08:22] LABS: Anion Gap 17.2 mEq/L (5-15); Carbon Dioxide 39 mmol/L (22.0-30.0)
[2019-11-23 10:07] LABS: Eosinophils % 1 % (0-3); Lymphocytes % 11 % (10-50); Monocytes % 3 % (2-9); Neutrophils % 85 % (42-76); Platelet Estimate Normal; RBC Morphology Normal; Total Cells Counted 100
--- NOTE | 2019-11-23 13:16 | HMH.DEATH ---
Pronouncement Note - Date and Time of Date of : 11/23/19 Time of : 12:55 - PCOD Preliminary cause of : Congestive heart failure - Additional Data Confirmation of : no pulse, no respirations, no heart sounds, pupils fixed and dilated Family: at bedside Attending physician: Ronnie Powers MD
--- NOTE | 2019-11-23 13:18 | PC.NURSE ---
FAMILY NOTIFIED THIS VAULT WORKER THAT PATIENT HAD STOPPED BREATHING AT 1250, I ASSESSED PT AT BEDSIDE, NOTIFIED ER PHYSICIAN, DR GARNER, AND NOTIFIED DR. ABDUL. PT ASSESSED AT BEDSIDE. PT WAS PRONOUNCED AT 12:55.
--- NOTE | 2019-11-23 13:21 | PC.NURSE ---
FAMILY NOTIFIED THIS USER EXPERIENCE DEVELOPER THAT PT STOPPED BREATHING AT 1250. I ASSESSED PT A BEDSIDE THEN NOTIFIED DR. ABDUL AND ER PHYSICIAN, DR. GARNER. DR. GARNER ASSESSED PT AT BEDSIDE AND PRONOUNCED TIME OF AT 12:55. [facility] CONTACTED AT 1310, SPOKE WITH RICKIE MILTON, .
--- NOTE | 2019-11-23 15:18 | PC.NURSE ---
BODY RELEASED TO [facility] AT 1511
--- NOTE | 2019-11-25 16:13 | HMH.DCSUM ---
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 Patient denies cough, fevers, chills. She did notice increased swelling of her lower extremities. Patient denies chest pain. When dyspnea became so severe she presented to the emergency department. In the ER patient was diagnosed with acute congestive heart failure. Patient was given 20 mg of IV Lasix with modest response. Early this morning around 5:30 AM she was given an additional 40 mg of IV Lasix by the on-call physician. Nursing staff reports patient has been quite anxious since admission and she was also given a single dose of IV Ativan early this morning. This has allowed the patient to sleep. She does awaken easily however during interview and exam Hospital Course Hospital Course: Patient was admitted with diagnosis of acute congestive heart failure that was revealed to be due to severe mitral valve stenosis on echocardiogram. Patient had a modest response to intravenous Lasix which was given 40 mg IV twice daily. However on the first full day of admission patient aspirated while trying to eat and developed symptoms consistent with aspiration pneumonia. Her oxygen requirement increased. Patient was started on Unasyn for her aspiration. WBC was followed daily and trended down from a high of 20,000. Serial ABGs done within the first 24 hours of hospitalization revealed hypercapnic respiratory failure occurring as her supplemental oxygen was increased. Hypercapnic respiratory failure was treated with BiPAP. BiPAP was initiated on the afternoon of the . This improved patient's hypercapnia as well as her oxygenation and by the morning of the patient had improved mental clarity and alertness. She remains short of breath. Despite use of either BiPAP or Vapotherm patient's condition gradually deteriorated. On the morning of the discussion was had with patient and family regarding the unlikelihood the patient would recover from this illness due to the multiple comorbidities. Patient wished for comfort measures. Patient was kept comfortable with use of intravenous morphine and Ativan for air hunger, pain, restlessness and Robinul for secretions. Patient in the afternoon on November 22. Objective Vital signs: Temp Pulse Resp BP Pulse Ox 97.9 F 70 36 H 123/82 90 L 11/23/19 03:50 11/23/19 04:00 11/23/19 11:05 11/23/19 03:50 11/23/19 08:00 DS: Diagnosis - Discharge Diagnosis (1) Congestive heart failure (CHF) Status: Acute (2) Recurrent left pleural effusion Status: Acute (3) Chronic kidney disease, stage III (moderate) Status: Acute (4) Status post mitral valve replacement with bioprosthetic valve Status: Acute (5) Status post aortic valve replacement with bioprosthetic valve Status: Acute (6) Mitral valve stenosis Status: Acute (7) Aspiration into airway Status: Acute (8) Aspiration pneumonia Status: Acute (9) Hypokalemia Status: Acute (10) Hypercapnic respiratory failure Status: Acute Discharge Plan - Patient Discharge Instructions Patient Instructions: Heart Failure, Atrial Fibrillation, DI for Heart Failure, DI for Atrial Fibrillation, DI for Shortness of Breath - Follow up Plan Disposition: Home Medications: Home Medications Medication Instructions Recorded Confirmed Type Aspirin [Aspir 81] 81 mg PO DAILY 06/17/18 11/20/19 History Fluoxetine HCl 20 mg PO DAILY 06/17/18 11/20/19 History Levothyroxine Sodium 100 mcg PO DAILY 06/17/18 11/20/19 History [Levothyroxine 100mcg (0.1MG) Tab] Rosuvastatin Calcium 10 mg PO HS 06/17/18 11/20/19 History Torsemide 20 mg PO BID 06/17/18 11/20/19 History Ferrous Glu
== END 2019-11-23 15:10 | disposition expired | DRG 291 ==
LOC: ER 21:56 → 2ND 11-20 00:47
PROVIDERS: Admitting Provider Internal Medicine Adolescent Medicine; Emergency Provider Emergency Medicine; PCP Family Medicine; Visit Provider Family Medicine
DX: I13.0 Hypertensive heart and chronic kidney disease with heart failure and stage 1 through stage 4 chronic kidney disease, or unspecified chronic kidney disease (principal); I50.43 Acute on chronic combined systolic (congestive) and diastolic (congestive) heart failure; J69.0 Pneumonitis due to inhalation of food and vomit; J96.02 Acute respiratory failure with hypercapnia; N18.3 Chronic kidney disease, stage 3 (moderate); Z79.82 Long term (current) use of aspirin; E03.9 Hypothyroidism, unspecified; I48.91 Unspecified atrial fibrillation; Z95.2 Presence of prosthetic heart valve; Z79.899 Other long term (current) drug therapy
CPT/HCPCS: 36415; 71045; 71046; 80048; 80053; 81001; 82803; 83735; 83880; 84484; 85007; 85025; 85651; 86140; 93005; 93306; 94640; 94660; 94761; 96374; 96375; 99284; J2405; J2543; U0003